=== PATIENT | female | born 1955 | race Caucasian/White ===

== ENCOUNTER → 2017-09-21 | Outpatient (CLI) | payer BC ==
[~2017-09-21] MED LIST: ASPI325 PO; ASPI81EC; ATORVASTATIN CA40 MG PO; BENZ100A PO; BUPR100; BUPR100ER PO; CETI5 PO; CIPR500 PO; CODBUTACEC PO; DIPH25 PO; DIVA125EC; DIVA500EC; DIVA500EC PO; Diflucan100 MG PO; EPIN.3I IM; ESTR.625; ESTR.625 PO; FAMO20 PO; FENO160 PO; FLUC200 PO; FLUO10; FURO20 PO; FURO40; Glipizide ER5 MG PO; HYDACE5 PO; HYDHCL25 PO; INSU100I6; INSULANPEN; LEVSOD100; LEVSOD112 PO; LISHYD2025 PO; LORA10ER PO; METO50ER PO; Metformin HCl500 M1 PO; NEFA100 PO; PRED20 PO; TANZEUM50 MG/0.5 SQ; VENL25 PO; ZYRTEC10 M1 PO; [UNRECOGNIZED DRUG - REMARK]; [UNRECOGNIZED DRUG - REMARK]
[2017-09-21 17:48] LABS: Albumin, Blood 3.4 g/dL (3.4-5.0); Albumin/Globulin Ratio 0.8 (0.8-1.8); Bilirubin, Total 0.4 mg/dL (0.1-1.0); Bun/Creatinine Ratio 30.1 (12.0-20.0); Calcium, Blood 8.9 mg/dL (8.5-10.1); Globulin, Blood 4.5 g/dL (2.2-4.0); Potassium, Blood 4.7 mmol/L (3.5-5.5); Total Protein, Blood 7.9 g/dL (6.4-8.2)
[2017-09-21 17:54] LABS: BASOPHILS PERCENT AUTO 1 % (0-2); EOSINOPHILS ABSOLUTE AUTO 0.57 K/mm3 (0.00-0.68); EOSINOPHILS PERCENT AUTO 6 % (0-6); Hematocrit 27.2 % (33.0-51.0); Hemoglobin 8.2 g/dL (11.5-16.0); IMMATURE GRAN ABSOLUTE AUTO 0.02 K/mm3 (0.00-0.10); IMMATURE GRAN PERCENT AUTO 0 % (0-1); LYMPHOCYTES ABSOLUTE AUTO 2.43 K/mm3 (0.84-5.20); LYMPHOCYTES PERCENT AUTO 25 % (21-46); MONOCYTES ABSOLUTE AUTO 0.88 K/mm3 (0.16-1.47); MONOCYTES PERCENT AUTO 9 % (4-13); Mean Corpuscular HGB 22.7 pg (26.0-34.0); Mean Corpuscular HGB Conc 30.1 g/dL (31.5-36.5); Mean Corpuscular Volume 75 fL (80-100); Mean Platelet Volume 9.9 fL (9.1-12.4); NEUTROPHILS ABSOLUTE AUTO 5.83 K/mm3 (1.96-9.15); NEUTROPHILS PERCENT AUTO 59 % (41-73); Platelet Count 252 K/mm3 (150-400); RDW Coefficient Variation 17.4 % (11.7-14.2); RDW Standard Deviation 47.7 fL (35.1-46.3); Red Blood Cell Count 3.61 M/mm3 (3.80-5.20); White Blood Cell Count 9.83 K/mm3 (4.00-11.30)
[2017-09-21 20:19] LABS: Percent Saturation 8.7 % (15.0-50.0)
== END ==
LOC: LAB SHORT 16:43 → LAB 16:43
PROVIDERS: Family Medicine
DX: L29.9 Pruritus, unspecified (principal); L30.9 Dermatitis, unspecified
CPT/HCPCS: 80053; 82728; 83540; 83550; 85025; 85651

== ENCOUNTER 2017-09-23 10:50 | Emergency (ER) | payer BC ==
[~2017-09-23] VITALS: Ht 167.6 cm; Wt 113.4 kg
[~2017-09-23 10:50] MED LIST changes: -HYDHCL25 PO; -ZYRTEC10 M1 PO
[2017-09-23 11:52] LABS: BASOPHILS ABSOLUTE AUTO 0.09 K/mm3 (0.00-0.23); BASOPHILS PERCENT AUTO 1 % (0-2); EOSINOPHILS ABSOLUTE AUTO 0.35 K/mm3 (0.00-0.68); EOSINOPHILS PERCENT AUTO 4 % (0-6); IMMATURE GRAN ABSOLUTE AUTO 0.03 K/mm3 (0.00-0.10); IMMATURE GRAN PERCENT AUTO 0 % (0-1); LYMPHOCYTES ABSOLUTE AUTO 1.71 K/mm3 (0.84-5.20); LYMPHOCYTES PERCENT AUTO 17 % (21-46); MONOCYTES ABSOLUTE AUTO 0.69 K/mm3 (0.16-1.47); MONOCYTES PERCENT AUTO 7 % (4-13); Mean Corpuscular HGB 23.1 pg (26.0-34.0); Mean Corpuscular HGB Conc 30.8 g/dL (31.5-36.5); Mean Corpuscular Volume 75 fL (80-100); Mean Platelet Volume 9.8 fL (9.1-12.4); NEUTROPHILS PERCENT AUTO 71 % (41-73); Platelet Count 230 K/mm3 (150-400); RDW Coefficient Variation 17.4 % (11.7-14.2); RDW Standard Deviation 46.5 fL (35.1-46.3); Red Blood Cell Count 3.47 M/mm3 (3.80-5.20); White Blood Cell Count 10.07 K/mm3 (4.00-11.30)
[2017-09-23 12:34] LABS: Alanine Aminotransfer (ALT/SGP 25 U/L (12-78); Albumin/Globulin Ratio 0.7 (0.8-1.8); Alk Phos 98 U/L (50-136); Anion Gap 11 mmol/L (6-16); Aspartate Aminotrans (AST/SGOT 27 U/L (12-37); Bilirubin, Total 0.5 mg/dL (0.1-1.0); Blood Urea Nitrogen 21 mg/dL (8-24); Bun/Creatinine Ratio 23.3 (12.0-20.0); CO2, Blood 18 mmol/L (21-32); Calcium, Blood 8.8 mg/dL (8.5-10.1); Chloride, Blood 106 mmol/L (98-108); Globulin, Blood 4.5 g/dL (2.2-4.0); Glomerular Filtration Rate >60 (60-); Glucose, Blood 174 mg/dL (70-99); Potassium, Blood 4.9 mmol/L (3.5-5.5); Sodium, Blood 135 mmol/L (136-145); Total Protein, Blood 7.5 g/dL (6.4-8.2); Troponin I <0.015 ng/mL (0.000-0.040)
[2017-09-23] MEDS ORDERED: HYDHCL25 PO (15:20)
[2017-09-23] MEDS ORDERED: ZYRTEC10 M1 PO (15:20)
== END 2017-09-23 15:35 | disposition home or self-care (01) ==
LOC: ER 10:50
PROVIDERS: Emergency Medicine
DX: L29.9 Pruritus, unspecified (principal); K14.0 Glossitis; D50.9 Iron deficiency anemia, unspecified; L98.9 Disorder of the skin and subcutaneous tissue, unspecified; E11.9 Type 2 diabetes mellitus without complications; F31.9 Bipolar disorder, unspecified; Z79.82 Long term (current) use of aspirin; Z79.899 Other long term (current) drug therapy; Z79.4 Long term (current) use of insulin
CPT/HCPCS: 36415; 71046; 80053; 83880; 84484; 85025; 93005; 93010; 99283

== ENCOUNTER 2017-09-24 16:47 | Emergency (ER) | payer BC ==
[~2017-09-24] VITALS: Ht 167.6 cm; Wt 112.9 kg
[~2017-09-24 16:47] MED LIST changes: +HYDHCL25 PO; +ZYRTEC10 M1 PO
== END 2017-09-24 17:56 | disposition home or self-care (01) ==
LOC: ER 16:47
DX: E11.649 Type 2 diabetes mellitus with hypoglycemia without coma (principal); F31.9 Bipolar disorder, unspecified; G20 Parkinson's disease
CPT/HCPCS: 82947; 93005; 93010; 99283

== ENCOUNTER → 2017-11-03 | Outpatient (CLI) | payer BC ==
[2017-11-03 17:22] LABS: Percent Saturation 5.4 % (15.0-50.0)
== END ==
LOC: LAB SHORT 16:31
PROVIDERS: Internal Medicine Hematology & Oncology
DX: R29.898 Other symptoms and signs involving the musculoskeletal system (principal); G60.9 Hereditary and idiopathic neuropathy, unspecified
CPT/HCPCS: 82607; 82728; 82746; 83540; 83550

== ENCOUNTER → 2017-12-24 | Outpatient (CLI) | payer BC ==
[~2017-12-24] MED LIST changes: +CARV3.125; +Hair, Skin & N1 EACH; +Humalog100 UNIT/1; +LOSA25; +MELATONIN 10 M1 EACH; +Seroquel Xr400 MG; +TYLECOD3
[2017-12-25 13:47] LABS: Stool Occult Bld Immuno 1 Negative (NEGATIVE); Stool Occult Bld Immuno 2 Negative (NEGATIVE)
== END | disposition home or self-care (01) ==
LOC: LAB SHORT 21:35 → LAB 21:35 → LAB FUT 12-02 10:50
PROVIDERS: Internal Medicine Gastroenterology
DX: D50.9 Iron deficiency anemia, unspecified (principal)
CPT/HCPCS: 82274

== ENCOUNTER → 2018-06-03 | Outpatient (CLI) | payer BC ==
[2018-06-03 16:40] LABS: Alanine Aminotransfer (ALT/SGP 36 U/L (12-78); Albumin, Blood 3.3 g/dL (3.4-5.0); Albumin/Globulin Ratio 0.8 (0.8-1.8); Alk Phos 181 U/L (50-136); Anion Gap 9 mmol/L (6-16); Aspartate Aminotrans (AST/SGOT 34 U/L (12-37); Bilirubin, Total 0.4 mg/dL (0.1-1.0); Blood Urea Nitrogen 17 mg/dL (8-24); Bun/Creatinine Ratio 22.4 (12.0-20.0); CO2, Blood 25 mmol/L (21-32); Calcium, Blood 8.7 mg/dL (8.5-10.1); Chloride, Blood 102 mmol/L (98-108); Creatinine, Blood 0.76 mg/dL (0.40-1.00); Globulin, Blood 4.2 g/dL (2.2-4.0); Glomerular Filtration Rate >60 (60-); Glucose, Blood 306 mg/dL (70-99); Potassium, Blood 4.2 mmol/L (3.5-5.5); Sodium, Blood 136 mmol/L (136-145); Total Protein, Blood 7.5 g/dL (6.4-8.2)
[2018-06-03 16:59] LABS: Percent Saturation 19.9 % (15.0-50.0)
== END | disposition home or self-care (01) ==
LOC: LAB SHORT 15:12 → LAB 15:12
PROVIDERS: Internal Medicine Hematology & Oncology
DX: D50.0 Iron deficiency anemia secondary to blood loss (chronic) (principal)
CPT/HCPCS: 80053; 82728; 83540; 83550

== ENCOUNTER → 2018-09-29 | Outpatient (CLI) | payer BC ==
[2018-09-29 17:23] LABS: Percent Saturation 13.6 % (15.0-50.0)
== END | disposition home or self-care (01) ==
LOC: LAB 16:35 → LAB SHORT 16:35
PROVIDERS: Internal Medicine Hematology & Oncology
DX: D51.8 Other vitamin B12 deficiency anemias (principal); D50.0 Iron deficiency anemia secondary to blood loss (chronic); R29.898 Other symptoms and signs involving the musculoskeletal system
CPT/HCPCS: 82607; 82728; 82746; 83540; 83550

== ENCOUNTER → 2019-03-11 | Outpatient (CLI) | payer OTHER | LOC: LAB SHORT 07:40 → PLD 07:40 | DX: L03.115 Cellulitis of right lower limb (principal) | CPT/HCPCS: 88305 ==

== ENCOUNTER → 2019-10-15 | Outpatient (CLI) | payer OTHER ==
[2019-10-15 09:12] LABS: Bilirubin, Urine Neg (Neg); Blood, Urine Neg (Neg); Glucose Qualitative, Urine 4+ (Neg); Ketones, Urine Neg (Neg); Leukocyte Esterase, Urine Neg (Neg); Nitrite, Urine Neg (Neg); Protein, Urine 1+ (Neg); Specific Gravity, Urine 1.025 (1.003-1.022); Urobilinogen, Urine NORM (Normal)
[2019-10-15 09:44] LABS: Appearance, Urine Hazy (Clear); Color, Urine Yellow (P-Yellow)
[2019-10-15 09:45] LABS: Bacteria Few /hpf; Calcium Oxalate Crystals Few /hpf; Red Blood Cells, Urine 0-2 /hpf (0-2); Squamous Epithelial Cells Mod /hpf (Few)
== END | disposition home or self-care (01) ==
LOC: LAB SHORT 08:28 → LAB 08:28
PROVIDERS: Family Medicine
DX: E11.65 Type 2 diabetes mellitus with hyperglycemia (principal); N19 Unspecified kidney failure; D50.0 Iron deficiency anemia secondary to blood loss (chronic); I10 Essential (primary) hypertension
CPT/HCPCS: 81001; 87086

== ENCOUNTER → 2019-10-19 | Outpatient (CLI) | payer OTHER ==
[2019-10-19 13:47] LABS: Stool Occult Bld Immuno 1 Negative (NEGATIVE)
== END | disposition home or self-care (01) ==
LOC: LAB SHORT 05:00 → LAB 05:00
PROVIDERS: Family Medicine
DX: Z12.11 Encounter for screening for malignant neoplasm of colon (principal)
CPT/HCPCS: G0328

== ENCOUNTER 2020-05-09 11:57 | Day surgery (SDC) | payer OTHER ==
[~2020-05-09] VITALS: Ht 160 cm; Wt 77.0 kg
[2020-05-09] MEDS ORDERED: CYCL10 (12:34)
[2020-05-09] MEDS ORDERED: Cyproheptadine H4 MG (12:34)
[2020-05-09] MEDS ORDERED: Naltrexone HCl50 MG (12:35)
[2020-05-09] MEDS ORDERED: GABA300 (12:35)
[2020-05-09] MEDS ORDERED: INVOKANA300 MG (12:35)
[2020-05-09] MEDS ORDERED: XYZAL5 MG (12:35)
[2020-05-09] MEDS ORDERED: OZEMPIC0.25 MG/0. (12:36)
--- NOTE | 2020-05-09 12:55 | NUR ---
05/09/[address] NOTIFED OF N ALLERGY, HE SAYS [place] OK.
--- NOTE | 2020-05-09 13:43 | NUR ---
05/09/20 1343 Deny Maurer 1 MG EPI ADDED TO EACH OF THE FIRST 3 BAGS OF LR FOR IRRIGATION.
== END 2020-05-09 15:35 | disposition home or self-care (01) ==
LOC: ORSCSDS 11:57
PROVIDERS: Orthopaedic Surgery
PROC: 0RNK4ZZ Release Left Shoulder Joint, Percutaneous Endoscopic Approach (ICD-10-PCS; principal; 2020-05-09 13:45)
PROC: 0LQ24ZZ Repair Left Shoulder Tendon, Percutaneous Endoscopic Approach (ICD-10-PCS; principal; 2020-05-09 13:45)
PROC: 0LS44ZZ Reposition Left Upper Arm Tendon, Percutaneous Endoscopic Approach (ICD-10-PCS; principal; 2020-05-09 13:45)
PROC: 0RHK44Z Insertion of Internal Fixation Device into Left Shoulder Joint, Percutaneous Endoscopic Approach (ICD-10-PCS; principal; 2020-05-09 13:45)
DX: M75.122 Complete rotator cuff tear or rupture of left shoulder, not specified as traumatic (principal); M75.22 Bicipital tendinitis, left shoulder; M75.42 Impingement syndrome of left shoulder; M19.012 Primary osteoarthritis, left shoulder; I10 Essential (primary) hypertension; E11.9 Type 2 diabetes mellitus without complications; E03.9 Hypothyroidism, unspecified; Z87.891 Personal history of nicotine dependence; F25.9 Schizoaffective disorder, unspecified; Z79.899 Other long term (current) drug therapy
CPT/HCPCS: 82947; C1713; J0171; J0690; J1100; J1885; J2001; J2250; J2405; J2704; J3010; J7120

== ENCOUNTER 2020-05-28 18:16 | Emergency (ER) | payer OTHER ==
[~2020-05-28] VITALS: Ht 160 cm; Wt 74.8 kg
[~2020-05-28 18:16] MED LIST changes: +CYCL10; +Cyproheptadine H4 MG; +GABA300; +INVOKANA300 MG; +Naltrexone HCl50 MG; +OZEMPIC0.25 MG/0.; +XYZAL5 MG
== END 2020-05-28 19:54 | disposition home or self-care (01) ==
LOC: ER 18:16
DX: M54.6 Pain in thoracic spine (principal); E11.9 Type 2 diabetes mellitus without complications; Z79.899 Other long term (current) drug therapy; Z79.4 Long term (current) use of insulin; Z88.0 Allergy status to penicillin; Z91.02 Food additives allergy status; Z88.5 Allergy status to narcotic agent; Z88.8 Allergy status to other drugs, medicaments and biological substances; Z79.82 Long term (current) use of aspirin
CPT/HCPCS: 96372; 99282-25; J1885

== ENCOUNTER → 2020-11-22 | Outpatient (CLI) | payer OTHER ==
[2020-11-22 16:05] LABS: Microalb/Creat Ratio UR, Rand 37.688 mg/g (0.000-30.000); Microalbumin, Random Urine 60.3 mg/L (0.000-20.000)
== END | disposition home or self-care (01) ==
LOC: LAB 13:09 → LAB SHORT 13:09
PROVIDERS: Internal Medicine Endocrinology, Diabetes & Metabolism
DX: R94.4 Abnormal results of kidney function studies (principal)
CPT/HCPCS: 82043; 82570

== ENCOUNTER 2020-11-23 04:02 | Emergency (ER) | payer OTHER ==
[~2020-11-23] VITALS: Ht 162.6 cm; Wt 70.8 kg
[2020-11-23 04:19] LABS: BASOPHILS ABSOLUTE AUTO 0.12 K/mm3 (0.00-0.23); BASOPHILS PERCENT AUTO 1 % (0-2); EOSINOPHILS ABSOLUTE AUTO 0.63 K/mm3 (0.00-0.68); EOSINOPHILS PERCENT AUTO 7 % (0-6); Hematocrit 37.8 % (33.0-51.0); Hemoglobin 12.7 g/dL (11.5-16.0); IMMATURE GRAN ABSOLUTE AUTO 0.02 K/mm3 (0.00-0.10); IMMATURE GRAN PERCENT AUTO 0 % (0-1); LYMPHOCYTES ABSOLUTE AUTO 1.71 K/mm3 (0.84-5.20); LYMPHOCYTES PERCENT AUTO 20 % (21-46); MONOCYTES ABSOLUTE AUTO 0.58 K/mm3 (0.16-1.47); MONOCYTES PERCENT AUTO 7 % (4-13); Mean Corpuscular HGB 30.7 pg (26.0-34.0); Mean Corpuscular HGB Conc 33.6 g/dL (31.5-36.5); Mean Corpuscular Volume 91 fL (80-100); Mean Platelet Volume 10.2 fL (9.1-12.4); NEUTROPHILS ABSOLUTE AUTO 5.51 K/mm3 (1.96-9.15); NEUTROPHILS PERCENT AUTO 64 % (41-73); Platelet Count 155 K/mm3 (150-400); RDW Coefficient Variation 14.1 % (11.7-14.2); RDW Standard Deviation 45.9 fL (35.1-46.3); Red Blood Cell Count 4.14 M/mm3 (3.80-5.20); White Blood Cell Count 8.57 K/mm3 (4.00-11.30)
[2020-11-23 04:54] LABS: Alanine Aminotransfer (ALT/SGP 34 U/L (12-78); Albumin, Blood 3.8 g/dL (3.4-5.0); Alk Phos 94 U/L (50-136); Anion Gap 4 mmol/L (6-16); Aspartate Aminotrans (AST/SGOT 44 U/L (12-37); Bilirubin, Total 0.6 mg/dL (0.1-1.0); Blood Urea Nitrogen 20 mg/dL (8-24); Bun/Creatinine Ratio 19.6 (12.0-20.0); CO2, Blood 28 mmol/L (21-32); Calcium, Blood 9.3 mg/dL (8.5-10.1); Chloride, Blood 105 mmol/L (98-108); Creatinine, Blood 1.02 mg/dL (0.40-1.00); Globulin, Blood 3.8 g/dL (2.2-4.0); Glomerular Filtration Rate 58 (60-); Glucose, Blood 85 mg/dL (70-99); Potassium, Blood 3.9 mmol/L (3.5-5.5); Sodium, Blood 137 mmol/L (136-145); Total Protein, Blood 7.6 g/dL (6.4-8.2); Troponin I <0.015 ng/mL (0.000-0.040)
== END 2020-11-23 07:20 | disposition home or self-care (01) ==
LOC: ER 04:02
PROVIDERS: Student in an Organized Health Care Education/Training Program
DX: R10.13 Epigastric pain (principal); E11.9 Type 2 diabetes mellitus without complications; Z88.2 Allergy status to sulfonamides; Z88.5 Allergy status to narcotic agent; Z88.0 Allergy status to penicillin; Z79.82 Long term (current) use of aspirin; Z79.899 Other long term (current) drug therapy
CPT/HCPCS: 76705; 80053; 83690; 84484; 85025; 93005; 93010; 96374; 96375; 99284-25; A9270; J1790; J2405

== ENCOUNTER → 2021-03-01 | Outpatient (CLI) | payer OTHER | END | disposition home or self-care (01) | LOC: LAB 13:42 → LAB SHORT 13:42 | DX: N39.9 Disorder of urinary system, unspecified (principal) | CPT/HCPCS: 87086 ==

== ENCOUNTER 2021-04-11 08:57 | Day surgery (SDC) | payer OTHER ==
[~2021-04-11] VITALS: Ht 160 cm; Wt 68.3 kg
== END 2021-04-11 11:05 | disposition home or self-care (01) ==
LOC: ORSCSDS 08:57
PROVIDERS: Internal Medicine Gastroenterology
PROC: 0DB48ZX Excision of Esophagogastric Junction, Via Natural or Artificial Opening Endoscopic, Diagnostic (ICD-10-PCS; principal; 2021-04-11 10:15)
DX: K74.60 Unspecified cirrhosis of liver (principal); Z13.810 Encounter for screening for upper gastrointestinal disorder; E11.9 Type 2 diabetes mellitus without complications; Z80.0 Family history of malignant neoplasm of digestive organs; G20 Parkinson's disease; I10 Essential (primary) hypertension; K76.6 Portal hypertension; K31.89 Other diseases of stomach and duodenum; G47.30 Sleep apnea, unspecified; Z79.4 Long term (current) use of insulin; Z79.82 Long term (current) use of aspirin; Z79.899 Other long term (current) drug therapy
CPT/HCPCS: 82947; 88305; 88312; J2001; J2250; J2370; J2704; J3010; J7120

== ENCOUNTER 2021-12-21 17:00 | Inpatient (IN) | payer OTHER, MEDICARE ==
[~2021-12-21] VITALS: Ht 160 cm; Wt 72.0 kg
[2021-12-21 17:31] LABS: BASOPHILS ABSOLUTE AUTO 0.05 K/mm3 (0.00-0.23); BASOPHILS PERCENT AUTO 1 % (0-2); EOSINOPHILS ABSOLUTE AUTO 0.27 K/mm3 (0.00-0.68); EOSINOPHILS PERCENT AUTO 5 % (0-6); Hematocrit 36.6 % (33.0-51.0); Hemoglobin 11.8 g/dL (11.5-16.0); IMMATURE GRAN ABSOLUTE AUTO 0.02 K/mm3 (0.00-0.10); IMMATURE GRAN PERCENT AUTO 0 % (0-1); LYMPHOCYTES ABSOLUTE AUTO 0.49 K/mm3 (0.84-5.20); LYMPHOCYTES PERCENT AUTO 8 % (21-46); MONOCYTES ABSOLUTE AUTO 0.38 K/mm3 (0.16-1.47); MONOCYTES PERCENT AUTO 6 % (4-13); Mean Corpuscular HGB 29.7 pg (26.0-34.0); Mean Corpuscular HGB Conc 32.2 g/dL (31.5-36.5); Mean Corpuscular Volume 92 fL (80-100); Mean Platelet Volume 9.9 fL (9.1-12.4); NEUTROPHILS ABSOLUTE AUTO 4.71 K/mm3 (1.96-9.15); NEUTROPHILS PERCENT AUTO 80 % (41-73); Platelet Count 107 K/mm3 (150-400); RDW Coefficient Variation 13.5 % (11.7-14.2); RDW Standard Deviation 45.9 fL (35.1-46.3); Red Blood Cell Count 3.97 M/mm3 (3.80-5.20); White Blood Cell Count 5.92 K/mm3 (4.00-11.30)
[2021-12-21 17:41] LABS: Albumin, Blood 3.7 g/dL (3.4-5.0); Bilirubin, Total 0.8 mg/dL (0.1-1.0); Bun/Creatinine Ratio 21.9 (12.0-20.0); Calcium, Blood 9.6 mg/dL (8.5-10.1); Creatinine, Blood 1.05 mg/dL (0.40-1.00); Globulin, Blood 3.7 g/dL (2.2-4.0); Potassium, Blood 3.9 mmol/L (3.5-5.5); Total Protein, Blood 7.4 g/dL (6.4-8.2)
[2021-12-21 20:09] LABS: Source, Urine Clean Catch
[2021-12-21 20:22] LABS: Bilirubin, Urine Neg (Neg); Blood, Urine Neg (Neg); Glucose Qualitative, Urine 4+ (Neg); Ketones, Urine 1+ (Neg); Leukocyte Esterase, Urine Neg (Neg); Nitrite, Urine Neg (Neg); Protein, Urine Neg (Neg); Specific Gravity, Urine 1.015 (1.003-1.022); Urobilinogen, Urine NORM (Normal)
[2021-12-21 20:25] LABS: Appearance, Urine Clear (Clear); Color, Urine Yellow (P-Yellow)
[2021-12-21 20:52] LABS: U Amphetamine Screen Not Detected; U Barbituate Screen Not Detected; U Benzodiazapine Screen Not Detected; U Buprenorphine Screen Not Detected; U Cannabinoids Screen Not Detected; U Cocaine Screen Not Detected; U Methadone Screen Not Detected; U Methamphetamine Screen Not Detected; U Opiates Screen DETECTED; U Oxycodone Screen Not Detected; U Phencyclidine Screen Not Detected; U Propoxyphene Screen Not Detected
--- NOTE | 2021-12-21 23:28 | NUR ---
ASSUMED CARE OF PT AT 2240HRS. PT ARRIVES TO THE FLOOR FROM THE ED VIA TRANSPORT STRETCHER. PT AMBULATES TO BED WITH MIN ASSISTANCE. NEW IV WAS NEEDED, PT TOLERATED PROCEEDURE WELL. BED LOW AND LOCKED, CALL LIGHT WITHIN REACH.
[2021-12-22 04:19] LABS: BASOPHILS ABSOLUTE AUTO 0.03 K/mm3 (0.00-0.23); BASOPHILS PERCENT AUTO 1 % (0-2); EOSINOPHILS ABSOLUTE AUTO 0.26 K/mm3 (0.00-0.68); EOSINOPHILS PERCENT AUTO 5 % (0-6); Hematocrit 32.1 % (33.0-51.0); Hemoglobin 10.6 g/dL (11.5-16.0); IMMATURE GRAN ABSOLUTE AUTO 0.02 K/mm3 (0.00-0.10); IMMATURE GRAN PERCENT AUTO 0 % (0-1); LYMPHOCYTES ABSOLUTE AUTO 0.72 K/mm3 (0.84-5.20); LYMPHOCYTES PERCENT AUTO 15 % (21-46); MONOCYTES ABSOLUTE AUTO 0.46 K/mm3 (0.16-1.47); MONOCYTES PERCENT AUTO 9 % (4-13); Mean Corpuscular HGB 30.3 pg (26.0-34.0); Mean Corpuscular Volume 92 fL (80-100); Mean Platelet Volume 9.5 fL (9.1-12.4); NEUTROPHILS ABSOLUTE AUTO 3.44 K/mm3 (1.96-9.15); NEUTROPHILS PERCENT AUTO 70 % (41-73); Platelet Count 87 K/mm3 (150-400); RDW Coefficient Variation 13.7 % (11.7-14.2); RDW Standard Deviation 46.5 fL (35.1-46.3); White Blood Cell Count 4.93 K/mm3 (4.00-11.30)
--- NOTE | 2021-12-22 04:19 | NUR ---
ASSUMED CARE OF PT AT 2240. PT IS A&OX4, SBA TO BR AND IS ABLE TO MAKE NEEDS KNOWN. ARRIVES TO THE SURGICAL FLOOR FROM THE ED FOR CHOLECYSTITIS, STATES THAT PAIN HAS BEEN HIGH "14/" BUT IS CURRENTLY "7/10" PT IS NPO. PT TO BE EVALUATED TODAY BY SURGERY. RESTS BETWEEN CARES, SLEEPS 6 HOURS THIS SHIFT. WILL CONTINUE TO MONITOR AND GIVE REPORT TO DAY SHIFT RN.
[2021-12-22 04:33] LABS: Bun/Creatinine Ratio 20.4 (12.0-20.0); Calcium, Blood 8.4 mg/dL (8.5-10.1); Creatinine, Blood 1.08 mg/dL (0.40-1.00); Potassium, Blood 3.7 mmol/L (3.5-5.5)
--- NOTE | 2021-12-22 08:22 | NUR ---
SURGICAL INFECTION PREVENTION BUNDLE COMPLETED.
[2021-12-22 12:27] LABS: Influenza A, PCR NEGATIVE (NEGATIVE); Influenza B, PCR NEGATIVE (NEGATIVE); Resp Syncytial Virus, PCR NEGATIVE (NEGATIVE)
[2021-12-22 12:31] LABS: SARS-Cov-2 (COVID-19) PCR, MMC POSITIVE (NEGATIVE)
--- NOTE | 2021-12-22 14:15 | NUR ---
PATIENT TO OR VIA [facility] WITH JUAN JOSÉ KIDD.
--- NOTE | 2021-12-23 05:45 | NUR ---
PT HAS BEEN RESTING COMFORTABLY IN BED WITH EYES CLOSED FOR MOST OF A.M. STATES PAIN IN SHOULDERS HAVE SUBSIDED. MINIMAL AMOUNT OF CREPITUS NOTED ON LEFT SHOULDER AREA LAST EVENING. NO CREPITUS NOTED NOW. PT UP TO BATHROOM TO VOID WITH ASSISTANCE OF NICOLE RDZ.
[2021-12-23] MEDS ORDERED: HYDR1TAB94 PO (10:19)
--- NOTE | 2021-12-23 11:07 | NUR ---
DISCHARGE SUMMARY PATIENT ALERT AND ORIENTED THROUGHOUT SHIFT. SBA IN ROOM. TOLERATING ADA DIET AND LIQUIDS. SALINE LOCKED. VOIDING WELL. ABD LAP SITES WNL WITH STERI STRIPS IN PLACE. ABD TENDER AND MOD DISTENDED. DISCHARGE ORDERS OBTAINED. DISCHARGE EDUCATION GIVEN ON PAIN MEDS, ACTIVITY, DIET, WOUND CARE, AND FOLLOW UP APPT. IV DC'D WNL. PATIENT LEFT UNIT AT 1100 VIA WHEELCHAIR WITH SPOUSE FOR HOME.
== END 2021-12-23 11:13 | disposition home or self-care (01) | DRG 417 ==
LOC: ER 17:00 → SURS 20:53
PROVIDERS: Emergency Medicine; Family Medicine; Surgery; ADMIT Internal Medicine
PROC: BF131ZZ Fluoroscopy of Gallbladder and Bile Ducts using Low Osmolar Contrast (ICD-10-PCS; 2021-12-22)
PROC: 8E0ZXY6 Isolation (ICD-10-PCS; 2021-12-22)
PROC: 0FT44ZZ Resection of Gallbladder, Percutaneous Endoscopic Approach (ICD-10-PCS; principal; 2021-12-22 13:30)
DX: K80.12 Calculus of gallbladder with acute and chronic cholecystitis without obstruction (principal); U07.1 COVID-19; N17.9 Acute kidney failure, unspecified; R18.8 Other ascites; M79.7 Fibromyalgia; G20 Parkinson's disease; F02.80 Dementia in other diseases classified elsewhere, unspecified severity, without behavioral disturbance, psychotic disturbance, mood disturbance, and anxiety; F31.9 Bipolar disorder, unspecified; D69.6 Thrombocytopenia, unspecified; N18.30 Chronic kidney disease, stage 3 unspecified; E11.22 Type 2 diabetes mellitus with diabetic chronic kidney disease; L29.9 Pruritus, unspecified; G89.4 Chronic pain syndrome; E11.40 Type 2 diabetes mellitus with diabetic neuropathy, unspecified; E03.9 Hypothyroidism, unspecified; K74.60 Unspecified cirrhosis of liver; Z90.710 Acquired absence of both cervix and uterus; Z98.890 Other specified postprocedural states; Z88.0 Allergy status to penicillin; Z88.2 Allergy status to sulfonamides; Z88.1 Allergy status to other antibiotic agents; Z88.6 Allergy status to analgesic agent; Z88.8 Allergy status to other drugs, medicaments and biological substances; Z79.4 Long term (current) use of insulin; Z79.82 Long term (current) use of aspirin; Z79.899 Other long term (current) drug therapy
CPT/HCPCS: 0241U; 36415; 74177; 74300; 80048; 80053; 81003; 82947; 83690; 84484; 85025; 88304; 93005; 93010; 96365-59; 96366; 96375; 96376; 99285-25; A9270; C1729; J0692; J1100; J2250; J2270; J2405; J2543; J2704; J3010; J7042; J7120; P9612; Q9967

== ENCOUNTER → 2022-01-31 | Outpatient (CLI) | payer OTHER, MEDICARE ==
[~2022-01-31] MED LIST changes: +HYDR1TAB94 PO
[2022-01-31 18:56] LABS: Creatinine Urine 56.4 mg/dL (27.00-270.00); Microalbumin, Urine Quant. 11.7 mg/L (0.000-20.000); Protein, Urine Quantitative 5.9 mg/dL (0.0-11.9)
== END | disposition home or self-care (01) ==
LOC: LAB 14:33 → LAB SHORT 14:33
PROVIDERS: Internal Medicine Nephrology
DX: N18.2 Chronic kidney disease, stage 2 (mild) (principal); D63.1 Anemia in chronic kidney disease; R76.9 Abnormal immunological finding in serum, unspecified; R94.5 Abnormal results of liver function studies; R94.6 Abnormal results of thyroid function studies
CPT/HCPCS: 81050; 82043; 82570; 84156

== ENCOUNTER → 2023-01-14 | Outpatient (CLI) | payer MEDICARE, OTHER | END | disposition home or self-care (01) | LOC: LAB 11:14 → LAB SHORT 11:14 → LAB FUT 01-11 17:20 → EDSTATUS 01-11 17:20 | DX: R27.0 Ataxia, unspecified (principal) | CPT/HCPCS: 81050 ==

== ENCOUNTER → 2023-03-20 | Outpatient (CLI) | payer MEDICARE, OTHER | END | disposition home or self-care (01) | LOC: LAB SHORT 15:50 → LAB 15:50 | DX: N39.0 Urinary tract infection, site not specified (principal) | CPT/HCPCS: 87077; 87086; 87186 ==

== ENCOUNTER 2023-04-14 16:25 | Inpatient (IN) | payer MEDICARE, OTHER ==
[~2023-04-14] VITALS: Ht 160 cm; Wt 69.8 kg
[~2023-04-14 16:25] MED LIST changes: -BUPR100ER PO; +BUPROPION XL150 M1 PO; -Naltrexone HCl50 MG; +Naltrexone HCl50 MG PO
[2023-04-14] MEDS ORDERED: FUROSEMIDE20 MG PO (17:01)
[2023-04-14] MEDS ORDERED: FINA5 PO (17:01)
[2023-04-14 17:04] LABS: BASOPHILS ABSOLUTE AUTO 0.04 K/mm3 (0.00-0.23); BASOPHILS PERCENT AUTO 0 % (0-2); EOSINOPHILS ABSOLUTE AUTO 0.04 K/mm3 (0.00-0.68); EOSINOPHILS PERCENT AUTO 0 % (0-6); Hematocrit 41.6 % (33.0-51.0); Hemoglobin 12.9 g/dL (11.5-16.0); IMMATURE GRAN ABSOLUTE AUTO 0.07 K/mm3 (0.00-0.10); IMMATURE GRAN PERCENT AUTO 0 % (0-1); LYMPHOCYTES ABSOLUTE AUTO 0.79 K/mm3 (0.84-5.20); LYMPHOCYTES PERCENT AUTO 5 % (21-46); MONOCYTES ABSOLUTE AUTO 0.59 K/mm3 (0.16-1.47); MONOCYTES PERCENT AUTO 3 % (4-13); Mean Corpuscular HGB 26.5 pg (26.0-34.0); Mean Corpuscular Volume 86 fL (80-100); Mean Platelet Volume 9.5 fL (9.1-12.4); NEUTROPHILS ABSOLUTE AUTO 15.94 K/mm3 (1.96-9.15); NEUTROPHILS PERCENT AUTO 91 % (41-73); Platelet Count 266 K/mm3 (150-400); RDW Coefficient Variation 16.1 % (11.7-14.2); RDW Standard Deviation 48.7 fL (35.1-46.3); Red Blood Cell Count 4.86 M/mm3 (3.80-5.20); White Blood Cell Count 17.47 K/mm3 (4.00-11.30)
[2023-04-14 17:31] LABS: Albumin, Blood 3.6 g/dL (3.4-5.0); Albumin/Globulin Ratio 0.8 (0.8-1.8); Bilirubin, Total 0.5 mg/dL (0.1-1.0); Calcium, Blood 10.3 mg/dL (8.5-10.1); Creatinine, Blood 1.71 mg/dL (0.40-1.00); Globulin, Blood 4.4 g/dL (2.2-4.0)
[2023-04-14] MEDS ORDERED: INSULANI SC (21:04)
[2023-04-14] MEDS ORDERED: LISI5 PO (21:06)
[2023-04-14 22:02] VITALS: BP 122/63
[2023-04-14] MEDS ORDERED: GABA300 PO ×4 (22:10→22:12)
[2023-04-15 03:56] VITALS: BP 96/45
--- NOTE | 2023-04-15 04:42 | NUR ---
SHIFT SUMMARY: PT IS ADMITTED FOR INFECTIOUS COLITIS AND IS A FULL CODE. SHE IS ALERT AND ABLE TO MAKE HER NEEDS KNOWN. ADLS HAVE BEEN 1P MOD ASSIST TO BEDSIDE COMMODE. HAS STATED THAT HER ABD IS TENDER BUT DECLINED ANYTHING FOR IT DURING SHIFT. IV TO LEFT AC IS PATENT AND RUNNING NS AT 125.
[2023-04-15 05:06] LABS: Hematocrit 35.4 % (33.0-51.0); Hemoglobin 11.1 g/dL (11.5-16.0); Mean Corpuscular HGB 26.9 pg (26.0-34.0); Mean Corpuscular HGB Conc 31.4 g/dL (31.5-36.5); Mean Corpuscular Volume 86 fL (80-100); Platelet Count 163 K/mm3 (150-400); RDW Coefficient Variation 16.6 % (11.7-14.2); RDW Standard Deviation 49.4 fL (35.1-46.3); Red Blood Cell Count 4.12 M/mm3 (3.80-5.20); White Blood Cell Count 14.26 K/mm3 (4.00-11.30)
[2023-04-15 05:51] LABS: Bun/Creatinine Ratio 20.8 (12.0-20.0); Calcium, Blood 8.4 mg/dL (8.5-10.1); Creatinine, Blood 1.49 mg/dL (0.40-1.00); Magnesium, Blood 2.1 mg/dL (1.6-2.4); Potassium, Blood 4.6 mmol/L (3.5-5.5)
[2023-04-15 06:16] LABS: Source, Urine Clean Catch
[2023-04-15 06:19] LABS: Appearance, Urine Hazy (Clear); Blood, Urine Neg (Neg); Color, Urine Yellow (P-Yellow); Glucose Qualitative, Urine Neg (Neg); Ketones, Urine Neg (Neg); Leukocyte Esterase, Urine 1+ (Neg); Nitrite, Urine Neg (Neg); Protein, Urine 2+ (Neg); Specific Gravity, Urine 1.025 (1.003-1.022); Urobilinogen, Urine NORM (Normal)
--- NOTE | 2023-04-15 06:29 | NUR ---
pt refused thryiod med this am. stated it was wrong dose. handed this nurse 3x5 card with hand written medications and doses. this nurse noted thryiod was written as 5mg. she was asked to have come in with pill bottles from home so medications can be matched.
[2023-04-15 06:46] LABS: Bilirubin, Urine 1+ (Neg)
[2023-04-15 06:47] LABS: Bacteria Few /hpf; Red Blood Cells, Urine Not Seen /hpf (0-2); Squamous Epithelial Cells Rare /hpf (Few)
[2023-04-15 07:15] VITALS: BP 123/50
--- NOTE | 2023-04-15 14:32 | NUR ---
Upon receiving a referral for spiritual care, I visited the patient. She talks at length about her family, her history and her recent surgeries and now this admission to the hospital. She shares about her Religion paul and her longing for the original mass format. She talks about her spouse's prosthetic eye surgery and it success and how she wishes to be out of the hosptial by morning so [place] I conduct a life review highlighting the patient's strengths, and provide therapeutic listening and prayer. Patient responded well and showed signs of an elevated mood. I will continue to remain available to patient and family.
[2023-04-15 15:18] VITALS: BP 106/47
--- NOTE | 2023-04-15 15:53 | NUR ---
NOTIFIED DR RONQUILLO OF PATIENT'S SOFT BP 106/47 AND TEMP OF 99.8. REPORTED PATIENT'S COMPLAINT OF ABDOMINAL CRAMPING FROM THE UMBILICUS UPWARD. HE VERBALIZED THAT HE WILL PUT IN SOME ORDERS.
--- NOTE | 2023-04-15 19:13 | NUR ---
SHIFT SUMMARY A&OX3-4, COOPERATIVE WITH CARE. DENIED CP/PRESSURE, HEADACHE, DIZZINESS, OR SOB. COMPLAINED OF 8/10 PAIN TO CRAMPING/ACHING ABDOMEN THAT RADIATES UP TO SHOULDERS. MEDICATED ONCE AT 1040 PER EMAR. EKG SHOWED NSR. PATIENT HAD A BLOODY/MUCOUSY STOOL AND SAMPLE WAS SENT FOR GI PANEL/CDIFF R[place] [facility] [place] RESTING IN BED WITH CALL LIGHT IN REACH.
[2023-04-15 20:13] VITALS: BP 118/52
[2023-04-15 20:20] LABS: Adenovirus F 40/41 Not Detected (NOT DETECT); Astrovirus Not Detected (NOT DETECT); Campylobacter Sp Not Detected (NOT DETECT); Cryptosporidium Not Detected (NOT DETECT); Cyclospora Cayetanensis Not Detected (NOT DETECT); E. Coli O157 Not Detected (NOT DETECT); Entamoeba Histolytica Not Detected (NOT DETECT); Enteroaggregative E. coli-EAEC Not Detected (NOT DETECT); Enteropathogenic E. coli-EPEC Not Detected (NOT DETECT); Enterotoxigenic E. coli-ETEC Not Detected (NOT DETECT); Giardia Lamblia Not Detected (NOT DETECT); Norovirus GI/GII Not Detected (NOT DETECT); Plesiomonas Shigelloides Not Detected (NOT DETECT); Rotavirus A Not Detected (NOT DETECT); Salmonella Sp Not Detected (NOT DETECT); Sapovirus Not Detected (NOT DETECT); Shiga Toxin-prod E. coli-STEC Not Detected (NOT DETECT); Shigella/Enteroin E. coli-EIEC Not Detected (NOT DETECT); Vibrio Cholerae Not Detected (NOT DETECT); Vibrio Sp Not Detected (NOT DETECT); Yersinia Enterocolitica Not Detected (NOT DETECT)
--- NOTE | 2023-04-15 21:00 | NUR ---
GI PANEL RESULT SHOWED (+) C.DIFF W/TOX A&B RESULTS PENDING. NAEL (GLUER MACHINE OPERATOR) MADE AND AWARE AND PT PLACED IN CONTACT ISO W/PO VANCO COMMENCED. 1ST DOSE RECIEVED.
[2023-04-16 02:45] VITALS: BP 118/52
--- NOTE | 2023-04-16 05:22 | NUR ---
SUMMARY: PT A/OX4, IS PLEASANT AND COOPERATIVE W/CARE AND CALLS APPROPRIATELY TO SPECIFY NEEDS. SHE'S 1-2PA TO BSC FOR WEAKNESS AND PARKINSONIAN TREMOR INTERMITTENTLY OBSERVED. PT WAS PLACED IN CONTACT ISO FOR (+) C.DIFF WHILE TOX A&B RESULT IS PENDING. ORAL VANCO COMMENCED W/1ST DOSE RECIEVED. IV ABX PROVIDED FOR COLITIS BUT PT REPORTS ABDO DISCOMFORT IS MUCH BETTER TONIGHT. SHE HASN'T REQUIRED ANY PRN NAUSEA OR PAIN MEDS THIS SHIFT AND DISTENSION SEEMS TO BE IMPROVING. SHE WAS UP TO BSC FOR X3 STOOLS THAT WERE MAROON COLORED W/MELENA ODOR AND LIQ/MUCOUS CONSISTENCY. MADE AWARE AND GUAIAC X1 RX'D, PLAN TO OBTAIN W/NEXT BM. NO ACUTE CHANGES, VSS/AFEBRILE. WCTM AND REPORT TO DAY RN.
[2023-04-16 06:35] LABS: Albumin, Blood 2.3 g/dL (3.4-5.0); Anion Gap 5 mmol/L (6-16); Blood Urea Nitrogen 41 mg/dL (8-24); Bun/Creatinine Ratio 21.9 (12.0-20.0); CO2, Blood 22 mmol/L (21-32); Calcium, Blood 7.8 mg/dL (8.5-10.1); Chloride, Blood 111 mmol/L (98-108); Creatinine, Blood 1.87 mg/dL (0.40-1.00); Glomerular Filtration Rate 29 (60-); Glucose, Blood 146 mg/dL (70-99); Phosphorus, Blood 2.7 mg/dL (2.5-4.9); Potassium, Blood 4.8 mmol/L (3.5-5.5); Sodium, Blood 138 mmol/L (136-145)
[2023-04-16 07:10] LABS: BASOPHILS ABSOLUTE AUTO 0.03 K/mm3 (0.00-0.23); BASOPHILS PERCENT AUTO 0 % (0-2); EOSINOPHILS ABSOLUTE AUTO 0.05 K/mm3 (0.00-0.68); EOSINOPHILS PERCENT AUTO 0 % (0-6); Hematocrit 33.2 % (33.0-51.0); Hemoglobin 10.3 g/dL (11.5-16.0); IMMATURE GRAN ABSOLUTE AUTO 0.27 K/mm3 (0.00-0.10); IMMATURE GRAN PERCENT AUTO 2 % (0-1); LYMPHOCYTES ABSOLUTE AUTO 1.01 K/mm3 (0.84-5.20); LYMPHOCYTES PERCENT AUTO 7 % (21-46); MONOCYTES ABSOLUTE AUTO 1.02 K/mm3 (0.16-1.47); MONOCYTES PERCENT AUTO 7 % (4-13); Mean Corpuscular HGB 26.4 pg (26.0-34.0); Mean Corpuscular Volume 85 fL (80-100); Mean Platelet Volume 10.5 fL (9.1-12.4); NEUTROPHILS ABSOLUTE AUTO 12.27 K/mm3 (1.96-9.15); NEUTROPHILS PERCENT AUTO 84 % (41-73); Platelet Count 142 K/mm3 (150-400); RDW Coefficient Variation 16.8 % (11.7-14.2); RDW Standard Deviation 51.8 fL (35.1-46.3); White Blood Cell Count 14.65 K/mm3 (4.00-11.30)
[2023-04-16 15:35] LABS: Stool Occult Blood Guaiac 1 Pos (Neg)
[2023-04-16 15:56] VITALS: BP 97/42
--- NOTE | 2023-04-16 17:14 | NUR ---
PATIENT A/OX4, UP WITH 1-2 ASSIST WITH FWW. PATIENT HAVING SMALL LIQUID MAROON COLORED STOOL, GUAIAC SENT AND CAME BACK POSITIVE. SPOKE WITH DR. RONQUILLO TODAY ABOUT PATIENTS STOOL AND ALSO THAT SHE IS VOIDING VERY LITTLE. LR RESTARTED AT 100 ML/HR. PATIENT ADVANCED TO SOFT DIET, AND PO INTAKE REMAINS POOR. VSS, ON 1LO2 TO MAINTAIN SATS >90%. PATIENT ABLE TO MAKE NEEDS KNOWN AND IS PLEASANT AND COOPERATIVE WITH CARE.
[2023-04-16 20:16] VITALS: BP 114/49
[2023-04-17 03:36] VITALS: BP 121/54
[2023-04-17 05:26] LABS: BASOPHILS ABSOLUTE AUTO 0.04 K/mm3 (0.00-0.23); BASOPHILS PERCENT AUTO 0 % (0-2); EOSINOPHILS ABSOLUTE AUTO 0.23 K/mm3 (0.00-0.68); EOSINOPHILS PERCENT AUTO 2 % (0-6); Hematocrit 32.1 % (33.0-51.0); Hemoglobin 9.9 g/dL (11.5-16.0); IMMATURE GRAN ABSOLUTE AUTO 0.56 K/mm3 (0.00-0.10); IMMATURE GRAN PERCENT AUTO 6 % (0-1); LYMPHOCYTES PERCENT AUTO 7 % (21-46); MONOCYTES PERCENT AUTO 7 % (4-13); Mean Corpuscular HGB 26.5 pg (26.0-34.0); Mean Corpuscular HGB Conc 30.8 g/dL (31.5-36.5); Mean Corpuscular Volume 86 fL (80-100); Mean Platelet Volume 9.7 fL (9.1-12.4); NEUTROPHILS ABSOLUTE AUTO 7.85 K/mm3 (1.96-9.15); NEUTROPHILS PERCENT AUTO 78 % (41-73); Platelet Count 121 K/mm3 (150-400); RDW Coefficient Variation 16.7 % (11.7-14.2); RDW Standard Deviation 51.8 fL (35.1-46.3); Red Blood Cell Count 3.73 M/mm3 (3.80-5.20); White Blood Cell Count 10.08 K/mm3 (4.00-11.30)
--- NOTE | 2023-04-17 05:42 | NUR ---
SHIFT SUMMARY PT SITTING UP IN BED DURING BEDSIE ROUNDS- PT AT BEDSIDE- PT UP TO BSC COUPLE TIMES T/O NIGHT- PT HAD MAROON COLORED STOOL EACH TIME- PT C/O PAIN FROM LEFT IV- STOPPED CIPRO- REDNESS AROUND THE IV SITE- REMOVED IV WITH CANULA INTACT-APPLIED COMPRESSION - REDNESS RESOVED- NEW IV STARTED IN RIGHT ARM- PT REQUESTED PAIN MED X 2 IN THE NIGHT- PT REPORTED ALL OVER PAIN -ENCOURAGED PT TO INCREASE FLUID INTAKE- BED LOW POSITION, CALL LIGHT WITHIN REACH
[2023-04-17 05:50] LABS: Albumin, Blood 2.1 g/dL (3.4-5.0); Anion Gap 7 mmol/L (6-16); Blood Urea Nitrogen 44 mg/dL (8-24); CO2, Blood 22 mmol/L (21-32); Calcium, Blood 7.8 mg/dL (8.5-10.1); Chloride, Blood 107 mmol/L (98-108); Creatinine, Blood 1.57 mg/dL (0.40-1.00); Glomerular Filtration Rate 36 (60-); Glucose, Blood 113 mg/dL (70-99); Phosphorus, Blood 2.3 mg/dL (2.5-4.9); Potassium, Blood 4.3 mmol/L (3.5-5.5); Sodium, Blood 136 mmol/L (136-145)
[2023-04-17 05:56] LABS: BAND PERCENT MAN 3 % (0-8); BASOPHILS PERCENT MAN 1 % (0-2); EOSINOPHILS PERCENT MAN 3 % (0-6); LYMPHOCYTES PERCENT MAN 6 % (21-46); METAMYELOCYTE PERCENT MAN 1 % (0-0); MONOCYTES PERCENT MAN 6 % (4-13); NEUTROPHILS ABSOLUTE MAN 8.36 K/mm3 (1.96-9.15); SEG NEUTROPHILS PERCENT MAN 80 % (41-73); TOTAL CELLS COUNTED 100
[2023-04-17 07:22] VITALS: BP 104/42
[2023-04-17 17:16] VITALS: BP 131/57
--- NOTE | 2023-04-17 17:20 | NUR ---
SHIFT SUMMARY PT AOX4, 1 ASSIST WITH THE FWW TO THE BSC. BLOODY STOOL THIS AM, PROVIDER IS AWARE AND MONITORING H AND H. MEDICATED FOR PAIN PER THE EMAR. PAIN SEEMS TO BE UNDER CONTROL USING THE MEDICATIONS AVAILABLE. HEATING PAD HAS ALSO HELPED WITH HER ABD PAIN. FAMILY HAS BEEN AT THE BS THROUGHOUT THE SHIFT. CALL LIGHT WITHIN REACH, BED IN THE LOWEST POSITION. WILL REPORT TO ONCOMING NURSE.
[2023-04-17 20:11] VITALS: BP 130/55
[2023-04-18 04:36] VITALS: BP 126/56
--- NOTE | 2023-04-18 04:45 | NUR ---
SHIFT SUMMARY PATIENT IS ALERT AND ORIENTED, IN THIS EVENING TO VISIT. PATIENT C/O STOMACH BLOATING AND FEELING LIKE SHE NEEDS TO HAVE A BOWEL MOVEMENT AND ALSO REPORTS THAT HER APPETITE HAS NOT BEEN VERY GOOD AND SHE HAS NOT BEEN EATING A WHOLE LOT. PATIENT C/O PAIN IN THE ABDOMEN-MEDICATED PER EMAR X1. PATIENT CALLS APPROPRIATELY AND IS ABLE TO MAKE HER NEEDS KNOWN. ENCOURGAED PATIENT TO DRINK ORAL FLUIDS. BED IS LOCKED IN THE LOWEST POSITION WITH CALL LIGHT IN REACH. NO S/S OF DISTRESS NOTED AT THIS TIME.
[2023-04-18 04:51] LABS: Hematocrit 30.9 % (33.0-51.0); Hemoglobin 9.7 g/dL (11.5-16.0); Mean Corpuscular HGB 26.4 pg (26.0-34.0); Mean Corpuscular HGB Conc 31.4 g/dL (31.5-36.5); Mean Corpuscular Volume 84 fL (80-100); Mean Platelet Volume 9.9 fL (9.1-12.4); Platelet Count 125 K/mm3 (150-400); RDW Coefficient Variation 16.3 % (11.7-14.2); RDW Standard Deviation 49.7 fL (35.1-46.3); Red Blood Cell Count 3.67 M/mm3 (3.80-5.20); White Blood Cell Count 7.57 K/mm3 (4.00-11.30)
[2023-04-18 05:28] LABS: Anion Gap 6 mmol/L (6-16); Blood Urea Nitrogen 33 mg/dL (8-24); Bun/Creatinine Ratio 26.8 (12.0-20.0); CO2, Blood 22 mmol/L (21-32); Calcium, Blood 7.9 mg/dL (8.5-10.1); Chloride, Blood 110 mmol/L (98-108); Creatinine, Blood 1.23 mg/dL (0.40-1.00); Ferritin, Serum 628 ng/mL (8-252); Glomerular Filtration Rate 48 (60-); Glucose, Blood 115 mg/dL (70-99); Iron Serum 16 ug/dL (50-170); Percent Saturation 8.3 % (15.0-50.0); Phosphorus, Blood 1.6 mg/dL (2.5-4.9); Potassium, Blood 4.2 mmol/L (3.5-5.5); Sodium, Blood 138 mmol/L (136-145); Total Iron Binding Capacity 193 ug/dL (250-450)
[2023-04-18 07:37] VITALS: BP 92/39
[2023-04-18 15:24] VITALS: BP 106/55
[2023-04-18] MEDS ORDERED: CARV3.125 PO (15:30)
[2023-04-18] MEDS ORDERED: FLAGYL500 M1 PO (15:31)
[2023-04-18] MEDS ORDERED: EUTHYROX50 MCG PO (15:32)
[2023-04-18] MEDS ORDERED: CIPR500 PO (15:32)
[2023-04-18] MEDS ORDERED: HYOS.125 SL (15:33)
[2023-04-18] MEDS ORDERED: NAC600 MG PO (16:16)
[2023-04-18] MEDS ORDERED: CALCIUM-MAGNES1 EAC9 PO (16:18)
[2023-04-18] MEDS ORDERED: ASPI325EC PO (16:18)
--- NOTE | 2023-04-18 18:13 | NUR ---
DC HOME WRITTEN & VERBAL DC INSTRUCTIONS GIVEN TO PT WITH SPOUSE PRESENT, BOTH VERBALIZED GOOD UNDERSTANDING. ALL CONCERNS & QUESTIONS ADDRESSED. PIV DC'D WITH CATH TIP INTACT, NO REDNESS OR SWELLING NOTED. NEW MED SCRIPTS FA[facility]ED TO [facility] PER PT REQUEST. PT TO PV VIA W/C WITH ALL PERSONAL BELONGINGS.
== END 2023-04-18 18:19 | disposition home or self-care (01) | DRG 872 ==
LOC: ER 16:25 → MEDS 21:01 → ENPENDDIS 04-18 16:48 → MEDS 04-18 18:19
PROVIDERS: Internal Medicine; Nurse Practitioner Acute Care; Physician Assistant; Student in an Organized Health Care Education/Training Program; ADMIT Internal Medicine
PROC: 3E03329 Introduction of Other Anti-infective into Peripheral Vein, Percutaneous Approach (ICD-10-PCS; principal; 2023-04-14)
PROC: 3E0DX29 Introduction of Other Anti-infective into Mouth and Pharynx, External Approach (ICD-10-PCS; 2023-04-15)
DX: A41.4 Sepsis due to anaerobes (principal); A04.72 Enterocolitis due to Clostridium difficile, not specified as recurrent; N17.9 Acute kidney failure, unspecified; N18.9 Chronic kidney disease, unspecified; E11.22 Type 2 diabetes mellitus with diabetic chronic kidney disease; F31.9 Bipolar disorder, unspecified; G20.A1 Parkinson's disease without dyskinesia, without mention of fluctuations; M79.7 Fibromyalgia; E86.0 Dehydration; R65.20 Severe sepsis without septic shock; E78.5 Hyperlipidemia, unspecified; I12.9 Hypertensive chronic kidney disease with stage 1 through stage 4 chronic kidney disease, or unspecified chronic kidney disease; E03.9 Hypothyroidism, unspecified; D63.1 Anemia in chronic kidney disease; K74.60 Unspecified cirrhosis of liver; Z88.0 Allergy status to penicillin; Z88.2 Allergy status to sulfonamides; Z88.1 Allergy status to other antibiotic agents; Z88.6 Allergy status to analgesic agent; Z88.8 Allergy status to other drugs, medicaments and biological substances; Z79.4 Long term (current) use of insulin; Z79.890 Hormone replacement therapy
CPT/HCPCS: 36415; 74177; 80048; 80053; 80069; 81001; 82272; 82728; 82947; 83540; 83550; 83605; 83615; 83690; 83735; 84484; 85025; 85027; 87040; 87086; 87324; 87507; 93005; 93010; 96361; 96365; 96372-59; 96375; 99285-25; A9270; J0500; J0744; J1644; J1815; J2405; J3010; J7030; J7120; P9612; Q9967

== ENCOUNTER 2023-04-28 11:20 | Emergency (ER) | payer MEDICARE, OTHER ==
[~2023-04-28] VITALS: Ht 160 cm; Wt 77.6 kg
[~2023-04-28 11:20] MED LIST changes: +ASPI325EC PO; +CALCIUM-MAGNES1 EAC9 PO; +CARV3.125 PO; +EUTHYROX50 MCG PO; +FINA5 PO; +FLAGYL500 M1 PO; +FUROSEMIDE20 MG PO; +GABA300 PO; +HYOS.125 SL; +INSULANI SC; +LISI5 PO; +NAC600 MG PO
[2023-04-28 11:55] LABS: BASOPHILS ABSOLUTE AUTO 0.06 K/mm3 (0.00-0.23); BASOPHILS PERCENT AUTO 1 % (0-2); EOSINOPHILS ABSOLUTE AUTO 0.28 K/mm3 (0.00-0.68); EOSINOPHILS PERCENT AUTO 6 % (0-6); Hematocrit 34.8 % (33.0-51.0); Hemoglobin 10.9 g/dL (11.5-16.0); IMMATURE GRAN ABSOLUTE AUTO 0.04 K/mm3 (0.00-0.10); IMMATURE GRAN PERCENT AUTO 1 % (0-1); LYMPHOCYTES ABSOLUTE AUTO 0.97 K/mm3 (0.84-5.20); LYMPHOCYTES PERCENT AUTO 19 % (21-46); MONOCYTES ABSOLUTE AUTO 0.34 K/mm3 (0.16-1.47); MONOCYTES PERCENT AUTO 7 % (4-13); Mean Corpuscular HGB 26.3 pg (26.0-34.0); Mean Corpuscular HGB Conc 31.3 g/dL (31.5-36.5); Mean Corpuscular Volume 84 fL (80-100); Mean Platelet Volume 9.4 fL (9.1-12.4); NEUTROPHILS ABSOLUTE AUTO 3.44 K/mm3 (1.96-9.15); NEUTROPHILS PERCENT AUTO 67 % (41-73); Platelet Count 164 K/mm3 (150-400); RDW Coefficient Variation 17.2 % (11.7-14.2); Red Blood Cell Count 4.15 M/mm3 (3.80-5.20); White Blood Cell Count 5.13 K/mm3 (4.00-11.30)
[2023-04-28 12:30] LABS: Albumin, Blood 2.8 g/dL (3.4-5.0); Albumin/Globulin Ratio 0.7 (0.8-1.8); Bilirubin, Total 0.5 mg/dL (0.1-1.0); Bun/Creatinine Ratio 13.9 (12.0-20.0); Calcium, Blood 9.3 mg/dL (8.5-10.1); Creatinine, Blood 0.72 mg/dL (0.40-1.00); Globulin, Blood 4.1 g/dL (2.2-4.0); Potassium, Blood 3.8 mmol/L (3.5-5.5); Total Protein, Blood 6.9 g/dL (6.4-8.2)
[2023-04-28] MEDS ORDERED: Cyproheptadine H4 MG (14:34)
[2023-04-28] MEDS ORDERED: ATOR40TA PO (14:35)
[2023-04-28] MEDS ORDERED: BASAGLAR K100 UNIT/3 SC (14:35)
[2023-04-28] MEDS ORDERED: Vancocin HCl125 MG (14:35)
[2023-04-28] MEDS ORDERED: HYDROCODONE-AC1 EA19 PO (14:35)
[2023-04-28 22:56] VITALS: BP 143/69
== END 2023-04-28 22:51 | disposition home or self-care (01) ==
LOC: ER 11:20
PROVIDERS: Physician Assistant
DX: R10.12 Left upper quadrant pain (principal); R18.8 Other ascites; A04.72 Enterocolitis due to Clostridium difficile, not specified as recurrent; E11.9 Type 2 diabetes mellitus without complications; Z91.02 Food additives allergy status; Z88.8 Allergy status to other drugs, medicaments and biological substances; Z88.0 Allergy status to penicillin; Z88.2 Allergy status to sulfonamides; Z88.1 Allergy status to other antibiotic agents; Z88.5 Allergy status to narcotic agent; Z79.890 Hormone replacement therapy; Z79.899 Other long term (current) drug therapy; Z79.4 Long term (current) use of insulin
CPT/HCPCS: 74177; 80053; 83690; 85025; 96361; 96374-59; 96375; 96376; 99284-25; A9270; J2270; J2405; J7030; Q9967

== ENCOUNTER → 2023-06-23 | Outpatient (CLI) | payer MEDICARE, OTHER ==
[~2023-06-23] MED LIST changes: +ATOR40TA PO; +BASAGLAR K100 UNIT/3 SC; +HYDROCODONE-AC1 EA19 PO; +Vancocin HCl125 MG
== END | disposition home or self-care (01) ==
LOC: LAB SHORT 15:30 → LAB 15:30
DX: N39.0 Urinary tract infection, site not specified (principal)
CPT/HCPCS: 87077; 87086; 87186

== ENCOUNTER → 2023-06-24 | Outpatient (CLI) | payer MEDICARE, OTHER ==
[2023-06-24 18:31] LABS: Campylobacter Sp Not Detected (NOT DETECT)
[2023-06-24 18:32] LABS: Adenovirus F 40/41 Not Detected (NOT DETECT); Astrovirus Not Detected (NOT DETECT); Cryptosporidium Not Detected (NOT DETECT); Cyclospora Cayetanensis Not Detected (NOT DETECT); E. Coli O157 Not Detected (NOT DETECT); Entamoeba Histolytica Not Detected (NOT DETECT); Enteroaggregative E. coli-EAEC Not Detected (NOT DETECT); Enteropathogenic E. coli-EPEC Not Detected (NOT DETECT); Enterotoxigenic E. coli-ETEC Not Detected (NOT DETECT); Giardia Lamblia Not Detected (NOT DETECT); Norovirus GI/GII Detected (NOT DETECT); Plesiomonas Shigelloides Not Detected (NOT DETECT); Rotavirus A Not Detected (NOT DETECT); Salmonella Sp Not Detected (NOT DETECT); Sapovirus Not Detected (NOT DETECT); Shiga Toxin-prod E. coli-STEC Not Detected (NOT DETECT); Shigella/Enteroin E. coli-EIEC Not Detected (NOT DETECT); Vibrio Cholerae Not Detected (NOT DETECT); Vibrio Sp Not Detected (NOT DETECT); Yersinia Enterocolitica Not Detected (NOT DETECT)
== END ==
LOC: LAB 15:38 → LAB SHORT 15:38
PROVIDERS: Family Medicine
DX: R19.7 Diarrhea, unspecified (principal)
CPT/HCPCS: 87324; 87507

== ENCOUNTER 2023-07-05 12:12 | Emergency (ER) | payer MEDICARE, OTHER ==
[~2023-07-05] VITALS: Ht 160 cm; Wt 68.5 kg
[2023-07-05 12:43] LABS: BASOPHILS ABSOLUTE AUTO 0.05 K/mm3 (0.00-0.23); BASOPHILS PERCENT AUTO 1 % (0-2); EOSINOPHILS ABSOLUTE AUTO 0.14 K/mm3 (0.00-0.68); EOSINOPHILS PERCENT AUTO 3 % (0-6); Hematocrit 30.5 % (33.0-51.0); Hemoglobin 9.5 g/dL (11.5-16.0); IMMATURE GRAN ABSOLUTE AUTO 0.02 K/mm3 (0.00-0.10); IMMATURE GRAN PERCENT AUTO 0 % (0-1); LYMPHOCYTES ABSOLUTE AUTO 0.73 K/mm3 (0.84-5.20); LYMPHOCYTES PERCENT AUTO 13 % (21-46); MONOCYTES PERCENT AUTO 9 % (4-13); Mean Corpuscular HGB 27.7 pg (26.0-34.0); Mean Corpuscular HGB Conc 31.1 g/dL (31.5-36.5); Mean Corpuscular Volume 89 fL (80-100); Mean Platelet Volume 9.1 fL (9.1-12.4); NEUTROPHILS ABSOLUTE AUTO 4.23 K/mm3 (1.96-9.15); NEUTROPHILS PERCENT AUTO 75 % (41-73); Platelet Count 157 K/mm3 (150-400); RDW Coefficient Variation 17.4 % (11.7-14.2); RDW Standard Deviation 56.9 fL (35.1-46.3); Red Blood Cell Count 3.43 M/mm3 (3.80-5.20); White Blood Cell Count 5.67 K/mm3 (4.00-11.30)
[2023-07-05] MEDS ORDERED: INSULIN (13:10)
[2023-07-05 13:11] LABS: Albumin, Blood 2.5 g/dL (3.4-5.0); Albumin/Globulin Ratio 0.6 (0.8-1.8); Bilirubin, Total 0.7 mg/dL (0.1-1.0); Bun/Creatinine Ratio 14.4 (12.0-20.0); Calcium, Blood 8.5 mg/dL (8.5-10.1); Creatinine, Blood 1.04 mg/dL (0.40-1.00); Globulin, Blood 4.4 g/dL (2.2-4.0); Potassium, Blood 3.4 mmol/L (3.5-5.5); Total Protein, Blood 6.9 g/dL (6.4-8.2)
[2023-07-05] MEDS ORDERED: FARXIGA10 MG PO (13:11)
[2023-07-05 14:45] VITALS: BP 112/58
== END 2023-07-05 14:53 | disposition home or self-care (01) ==
LOC: ER 12:12
PROVIDERS: Emergency Medicine
DX: R07.9 Chest pain, unspecified (principal); Z88.8 Allergy status to other drugs, medicaments and biological substances; Z88.0 Allergy status to penicillin; Z88.1 Allergy status to other antibiotic agents; Z88.2 Allergy status to sulfonamides; Z88.5 Allergy status to narcotic agent; Z79.899 Other long term (current) drug therapy; Z79.4 Long term (current) use of insulin; E11.9 Type 2 diabetes mellitus without complications; G20.A1 Parkinson's disease without dyskinesia, without mention of fluctuations
CPT/HCPCS: 71045; 80053; 83690; 84484; 85025; 93005; 93010; 99284-25

== ENCOUNTER 2023-12-25 19:47 | Emergency (ER) | payer MEDICARE, OTHER ==
[~2023-12-25] VITALS: Ht 162.6 cm; Wt 77.1 kg
[~2023-12-25 19:47] MED LIST changes: +FARXIGA10 MG PO; +INSULIN
[2023-12-25 19:49] VITALS: BP 131/67
[2023-12-25] MEDS ORDERED: Amoxicillin875 MG PO (20:01)
== END 2023-12-25 19:59 | disposition home or self-care (01) ==
LOC: ER 19:47
DX: R60.0 Localized edema (principal); E11.9 Type 2 diabetes mellitus without complications; Z79.899 Other long term (current) drug therapy; Z79.4 Long term (current) use of insulin; Z88.2 Allergy status to sulfonamides; Z88.1 Allergy status to other antibiotic agents; Z88.5 Allergy status to narcotic agent; Z88.8 Allergy status to other drugs, medicaments and biological substances
CPT/HCPCS: 99282

== ENCOUNTER 2024-02-25 17:19 | Inpatient (IN) | payer OTHER, MEDICARE ==
[~2024-02-25] VITALS: Ht 165.1 cm; Wt 76.4 kg
[~2024-02-25 17:19] MED LIST changes: +Amoxicillin875 MG PO
[2024-02-25] MEDS ORDERED: Lactated Ringer's 1,000 ML IV ONE (17:30)
[2024-02-25] MEDS ORDERED: Diphth,Pertuss(Acell),Tet Vac 0.5 ML VIAL IM ONE (17:30)
[2024-02-25 17:54] LABS: BASOPHILS ABSOLUTE AUTO 0.04 K/mm3 (0.00-0.23); BASOPHILS PERCENT AUTO 0 % (0-2); EOSINOPHILS ABSOLUTE AUTO 0.25 K/mm3 (0.00-0.68); EOSINOPHILS PERCENT AUTO 3 % (0-6); Hematocrit 36.7 % (33.0-51.0); Hemoglobin 11.5 g/dL (11.5-16.0); IMMATURE GRAN ABSOLUTE AUTO 0.09 K/mm3 (0.00-0.10); IMMATURE GRAN PERCENT AUTO 1 % (0-1); LYMPHOCYTES ABSOLUTE AUTO 1.02 K/mm3 (0.84-5.20); LYMPHOCYTES PERCENT AUTO 11 % (21-46); MONOCYTES ABSOLUTE AUTO 0.66 K/mm3 (0.16-1.47); MONOCYTES PERCENT AUTO 7 % (4-13); Mean Corpuscular HGB 28.3 pg (26.0-34.0); Mean Corpuscular HGB Conc 31.3 g/dL (31.5-36.5); Mean Corpuscular Volume 90 fL (80-100); Mean Platelet Volume 9.1 fL (9.1-12.4); NEUTROPHILS PERCENT AUTO 79 % (41-73); Platelet Count 192 K/mm3 (150-400); RDW Coefficient Variation 17.1 % (11.7-14.2); RDW Standard Deviation 56.6 fL (35.1-46.3); Red Blood Cell Count 4.07 M/mm3 (3.80-5.20); White Blood Cell Count 9.76 K/mm3 (4.00-11.30)
[2024-02-25 18:09] LABS: International Normalized Ratio 0.96; Prothrombin Time Results 10.3 Sec (9.7-11.5)
[2024-02-25 18:17] LABS: Magnesium, Blood 1.9 mg/dL (1.6-2.4)
[2024-02-25 18:18] LABS: Albumin, Blood 2.5 g/dL (3.4-5.0); Albumin/Globulin Ratio 0.6 (0.8-1.8); Bilirubin, Total 0.7 mg/dL (0.1-1.0); Bun/Creatinine Ratio 21.1 (12.0-20.0); Calcium, Blood 9.2 mg/dL (8.5-10.1); Creatinine, Blood 1.23 mg/dL (0.40-1.00); Globulin, Blood 3.9 g/dL (2.2-4.0); Potassium, Blood 4.7 mmol/L (3.5-5.5); Total Protein, Blood 6.4 g/dL (6.4-8.2)
[2024-02-25] MEDS ORDERED: Acetaminophen 325 MG TABLET PO ONE (19:20)
[2024-02-25] MEDS ORDERED: OxyCODONE HCL 5 MG TAB PO ONE (19:20)
[2024-02-26 03:00] LABS: Source, Urine Clean Catch
[2024-02-26 03:02] LABS: Bilirubin, Urine Neg (Neg); Blood, Urine Neg (Neg); Glucose Qualitative, Urine 4+ (Neg); Ketones, Urine Neg (Neg); Leukocyte Esterase, Urine Neg (Neg); Nitrite, Urine Neg (Neg); Protein, Urine Neg (Neg); Specific Gravity, Urine 1.005 (1.003-1.022); Urobilinogen, Urine NORM (Normal)
[2024-02-26 03:04] LABS: Appearance, Urine Clear (Clear); Color, Urine Yellow (P-Yellow)
[2024-02-26] MEDS ORDERED: Bisacodyl 10 MG Supp PR PRN (03:10)
[2024-02-26] MEDS ORDERED: Acetaminophen 650 MG Supp PR PRN (03:10)
[2024-02-26] MEDS ORDERED: Acetaminophen 325 MG TABLET PO PRN (03:10)
[2024-02-26] MEDS ORDERED: Magnesium Hydroxide Conc 10 ML UDC PO PRN (03:10)
[2024-02-26] MEDS ORDERED: FLU VACC TS2024-25(6MOS UP)/PF 45 MCG/0.5 ML SYRINGE IM SCH (03:10)
[2024-02-26 05:49] VITALS: BP 121/52
[2024-02-26] MEDS ORDERED: Insulin Human Lispro 100 Units/ML 3ML Syringe SC SCH ×2 (06:00→16:30)
[2024-02-26] MEDS ORDERED: Levothyroxine Sodium 0.05 MG Tab PO SCH (06:00)
[2024-02-26 06:54] LABS: BASOPHILS ABSOLUTE AUTO 0.02 K/mm3 (0.00-0.23); BASOPHILS PERCENT AUTO 0 % (0-2); EOSINOPHILS ABSOLUTE AUTO 0.18 K/mm3 (0.00-0.68); EOSINOPHILS PERCENT AUTO 3 % (0-6); Hematocrit 32.6 % (33.0-51.0); Hemoglobin 10.3 g/dL (11.5-16.0); IMMATURE GRAN ABSOLUTE AUTO 0.06 K/mm3 (0.00-0.10); IMMATURE GRAN PERCENT AUTO 1 % (0-1); LYMPHOCYTES ABSOLUTE AUTO 0.89 K/mm3 (0.84-5.20); LYMPHOCYTES PERCENT AUTO 13 % (21-46); MONOCYTES ABSOLUTE AUTO 0.52 K/mm3 (0.16-1.47); MONOCYTES PERCENT AUTO 7 % (4-13); Mean Corpuscular HGB 28.4 pg (26.0-34.0); Mean Corpuscular HGB Conc 31.6 g/dL (31.5-36.5); Mean Corpuscular Volume 90 fL (80-100); NEUTROPHILS ABSOLUTE AUTO 5.38 K/mm3 (1.96-9.15); NEUTROPHILS PERCENT AUTO 76 % (41-73); Platelet Count 160 K/mm3 (150-400); RDW Coefficient Variation 17.3 % (11.7-14.2); RDW Standard Deviation 57.1 fL (35.1-46.3); Red Blood Cell Count 3.63 M/mm3 (3.80-5.20); White Blood Cell Count 7.05 K/mm3 (4.00-11.30)
--- NOTE | 2024-02-26 07:11 | NUR ---
Pt was admitted from the ER with a DX of subarachnoid hemorrhage following injury and multiple falls. Pt alert oriented x 4. She has bruises to rt side of face, rt shoulder, bilat knees, and buttocks. Shes very weak to BLE. c/o headache but no dizziness. vss at this time. Her is at the bedside and they are both able to answer questions.
[2024-02-26 07:12] LABS: Albumin, Blood 2.3 g/dL (3.4-5.0); Albumin/Globulin Ratio 0.7 (0.8-1.8); Bilirubin, Total 0.7 mg/dL (0.1-1.0); Bun/Creatinine Ratio 23.4 (12.0-20.0); Calcium, Blood 8.7 mg/dL (8.5-10.1); Creatinine, Blood 1.11 mg/dL (0.40-1.00); Globulin, Blood 3.3 g/dL (2.2-4.0); Potassium, Blood 4.1 mmol/L (3.5-5.5); Total Protein, Blood 5.6 g/dL (6.4-8.2)
[2024-02-26 07:22] VITALS: BP 117/49
[2024-02-26] MEDS ORDERED: Insulin Glargine-Yfgn 100 Unit/mL 3 ML SYR SC SCH ×2 (09:00→21:00)
[2024-02-26] MEDS ORDERED: Docusate Sodium 100 MG Cap PO SCH (09:00)
[2024-02-26] MEDS ORDERED: Finasteride 5 MG Tab PO SCH (09:00)
[2024-02-26] MEDS ORDERED: Gabapentin 300 MG Cap PO SCH (09:00)
[2024-02-26] MEDS ORDERED: Sennosides 8.6 MG Tab PO SCH (09:00)
[2024-02-26] MEDS ORDERED: buPROPion HCL 150 MG TAB.SR.12H PO SCH (09:00)
[2024-02-26 13:02] VITALS: BP 111/53
[2024-02-26 14:56] VITALS: BP 99/39
--- NOTE | 2024-02-26 18:30 | NUR ---
SHIFT SUMMARY PATIENT ALERT AND INTERACTIVE. PATIENT HAVING WORD SALAD AT TIMES. PATIENT UP AMBULATING TO BR WITH ASSIST. PATIENT HAVING BALANCE ISSUES. PATIENT STATES THAT SHE HAS HAD BALANCE ISSUES PRIOR TO FALLS. VARIOUS BRUISING NOTED. NEURO CHECKS UNCHANGED.
[2024-02-26 19:49] VITALS: BP 122/50
[2024-02-26] MEDS ORDERED: Naltrexone HCl 50 MG Tab PO SCH (21:00)
[2024-02-26] MEDS ORDERED: N-Acetylcysteine 600 MG CAP PO SCH (21:00)
[2024-02-27 02:58] VITALS: BP 123/60
--- NOTE | 2024-02-27 04:16 | NUR ---
SHIFT SUMMARY PATIENT IS ALERT AND ORIENTED X3 WITH CONFUSION OCCASIONALLY. PATIENT HAS HAD NO ACUTE EVENTS THIS SHIFT. VITAL SIGNS REVIEWED. PATIENT HAS SLEPT MOST OF SHIFT. CBG HAS BEEN TRENDING LOWER. PATIENT HAS NOT COMPLAINED OF PAIN, NAUSEA, SOB OR VOMITTING THIS SHIFT. BED IN LOCKED AND LOWERED POSITION. BED ALARM ON. CALL LIGHT WITHIN REACH.
[2024-02-27 05:37] LABS: BASOPHILS ABSOLUTE AUTO 0.03 K/mm3 (0.00-0.23); BASOPHILS PERCENT AUTO 1 % (0-2); EOSINOPHILS ABSOLUTE AUTO 0.15 K/mm3 (0.00-0.68); EOSINOPHILS PERCENT AUTO 2 % (0-6); Hematocrit 30.9 % (33.0-51.0); Hemoglobin 9.7 g/dL (11.5-16.0); IMMATURE GRAN ABSOLUTE AUTO 0.07 K/mm3 (0.00-0.10); IMMATURE GRAN PERCENT AUTO 1 % (0-1); LYMPHOCYTES ABSOLUTE AUTO 0.82 K/mm3 (0.84-5.20); LYMPHOCYTES PERCENT AUTO 13 % (21-46); MONOCYTES PERCENT AUTO 10 % (4-13); Mean Corpuscular HGB 28.3 pg (26.0-34.0); Mean Corpuscular HGB Conc 31.4 g/dL (31.5-36.5); Mean Corpuscular Volume 90 fL (80-100); Mean Platelet Volume 9.3 fL (9.1-12.4); NEUTROPHILS ABSOLUTE AUTO 4.61 K/mm3 (1.96-9.15); NEUTROPHILS PERCENT AUTO 73 % (41-73); Platelet Count 149 K/mm3 (150-400); RDW Coefficient Variation 17.6 % (11.7-14.2); Red Blood Cell Count 3.43 M/mm3 (3.80-5.20); White Blood Cell Count 6.28 K/mm3 (4.00-11.30)
[2024-02-27 06:20] LABS: Albumin, Blood 2.2 g/dL (3.4-5.0); Albumin/Globulin Ratio 0.7 (0.8-1.8); Bilirubin, Total 0.7 mg/dL (0.1-1.0); Bun/Creatinine Ratio 22.5 (12.0-20.0); Calcium, Blood 8.4 mg/dL (8.5-10.1); Creatinine, Blood 1.11 mg/dL (0.40-1.00); Globulin, Blood 3.3 g/dL (2.2-4.0); Potassium, Blood 4.5 mmol/L (3.5-5.5); Total Protein, Blood 5.5 g/dL (6.4-8.2)
[2024-02-27 07:25] VITALS: BP 117/54
[2024-02-27] MEDS ORDERED: Insulin Human Lispro 100 Units/ML 3ML Syringe SC SCH (07:30)
[2024-02-27] MEDS ORDERED: DOCU100 PO (15:23)
[2024-02-27] MEDS ORDERED: HUMALOG100 UNIT/1 (15:25)
[2024-02-27] MEDS ORDERED: INSULIN LI100 UNIT/6 SC (15:29)
[2024-02-27 15:40] VITALS: BP 122/59
--- NOTE | 2024-02-27 16:04 | NUR ---
DISCHARGE PT A&OX4, AND COOPERATIVE. PT WAS TAKEN DOWN TO ED EXIT BY NATALIA RDZ BY WHEELCHAIR. IV WAS DC'D WITHOUT PROBLEMS. TOOK BELONGINGS AND DISCHARGE PAPERWORK. EDUCATION PROVIDED TO PT ABOUT BEING PATIENT AND NOT FALLING AT HOME.
== END 2024-02-27 16:20 | disposition home health service (06) | DRG 82 ==
LOC: ER 17:19 → MEDS 02-26 03:05
PROVIDERS: Family Medicine; Student in an Organized Health Care Education/Training Program; ADMIT Surgery
DX: S06.6X9A Traumatic subarachnoid hemorrhage with loss of consciousness of unspecified duration, initial encounter (principal); G92.8 Other toxic encephalopathy; E87.1 Hypo-osmolality and hyponatremia; E87.20 Acidosis, unspecified; R18.8 Other ascites; E11.9 Type 2 diabetes mellitus without complications; M79.7 Fibromyalgia; G20.A1 Parkinson's disease without dyskinesia, without mention of fluctuations; F02.80 Dementia in other diseases classified elsewhere, unspecified severity, without behavioral disturbance, psychotic disturbance, mood disturbance, and anxiety; F31.9 Bipolar disorder, unspecified; R29.6 Repeated falls; S01.81XA Laceration without foreign body of other part of head, initial encounter; K74.60 Unspecified cirrhosis of liver; Z90.710 Acquired absence of both cervix and uterus; Z98.890 Other specified postprocedural states; Z88.1 Allergy status to other antibiotic agents; Z88.2 Allergy status to sulfonamides; Z88.6 Allergy status to analgesic agent; Z88.8 Allergy status to other drugs, medicaments and biological substances; Z79.4 Long term (current) use of insulin; Z79.890 Hormone replacement therapy; Z79.899 Other long term (current) drug therapy; W01.198A Fall on same level from slipping, tripping and stumbling with subsequent striking against other object, initial encounter; Y92.093 Driveway of other non-institutional residence as the place of occurrence of the external cause
CPT/HCPCS: 36415; 70450; 70486; 71260; 72125; 73590; 73610; 73630; 74177; 80048; 80053; 81003; 82140; 82947; 83605; 83690; 83735; 83880; 84484; 85025; 85027; 85610; 85730; 86850; 86900; 86901; 93005; 93010; 97116; 97162; 97167; 97530; 99285-25; A9270; J1815; J7120; Q9967

== ENCOUNTER 2024-03-24 09:32 | Emergency (ER) | payer MEDICARE, OTHER ==
[~2024-03-24] VITALS: Ht 162.6 cm; Wt 81.7 kg
[~2024-03-24 09:32] MED LIST changes: +DOCU100 PO; +HUMALOG100 UNIT/1; +INSULIN LI100 UNIT/6 SC
[2024-03-24 10:05] LABS: BASOPHILS ABSOLUTE AUTO 0.02 K/mm3 (0.00-0.23); BASOPHILS PERCENT AUTO 0 % (0-2); EOSINOPHILS ABSOLUTE AUTO 0.16 K/mm3 (0.00-0.68); EOSINOPHILS PERCENT AUTO 1 % (0-6); Hematocrit 36.2 % (33.0-51.0); Hemoglobin 11.8 g/dL (11.5-16.0); IMMATURE GRAN ABSOLUTE AUTO 0.12 K/mm3 (0.00-0.10); IMMATURE GRAN PERCENT AUTO 1 % (0-1); LYMPHOCYTES ABSOLUTE AUTO 1.17 K/mm3 (0.84-5.20); LYMPHOCYTES PERCENT AUTO 9 % (21-46); MONOCYTES ABSOLUTE AUTO 0.82 K/mm3 (0.16-1.47); MONOCYTES PERCENT AUTO 6 % (4-13); Mean Corpuscular HGB 27.3 pg (26.0-34.0); Mean Corpuscular HGB Conc 32.6 g/dL (31.5-36.5); Mean Corpuscular Volume 84 fL (80-100); Mean Platelet Volume 10.4 fL (9.1-12.4); NEUTROPHILS ABSOLUTE AUTO 11.43 K/mm3 (1.96-9.15); NEUTROPHILS PERCENT AUTO 83 % (41-73); Platelet Count 236 K/mm3 (150-400); RDW Coefficient Variation 17.6 % (11.7-14.2); RDW Standard Deviation 54.1 fL (35.1-46.3); Red Blood Cell Count 4.33 M/mm3 (3.80-5.20); White Blood Cell Count 13.72 K/mm3 (4.00-11.30)
[2024-03-24 10:20] LABS: Albumin, Blood 2.8 g/dL (3.4-5.0); Albumin/Globulin Ratio 0.7 (0.8-1.8); Bilirubin, Total 0.7 mg/dL (0.1-1.0); Bun/Creatinine Ratio 53.5 (12.0-20.0); Calcium, Blood 9.6 mg/dL (8.5-10.1); Creatinine, Blood 1.29 mg/dL (0.40-1.00); Globulin, Blood 3.8 g/dL (2.2-4.0); Potassium, Blood 5.3 mmol/L (3.5-5.5); Total Protein, Blood 6.6 g/dL (6.4-8.2)
[2024-03-24] MEDS ORDERED: Lactated Ringer's 500 ML IV SCH ×2 (10:30→10:45)
[2024-03-24] MEDS ORDERED: Lactated Ringer's 500 ML IV ONE (10:50)
[2024-03-24 11:39] LABS: Influenza A, PCR NEGATIVE (NEGATIVE); Influenza B, PCR NEGATIVE (NEGATIVE); Resp Syncytial Virus, PCR NEGATIVE (NEGATIVE); SARS-Cov-2 (COVID-19) PCR, MMC NEGATIVE (NEGATIVE)
[2024-03-24 12:19] LABS: Source, Urine Clean Catch
[2024-03-24 12:24] LABS: Appearance, Urine Clear (Clear); Bilirubin, Urine Neg (Neg); Blood, Urine Neg (Neg); Color, Urine Yellow (P-Yellow); Glucose Qualitative, Urine 4+ (Neg); Ketones, Urine Neg (Neg); Leukocyte Esterase, Urine Neg (Neg); Nitrite, Urine Neg (Neg); Protein, Urine Neg (Neg); Specific Gravity, Urine 1.015 (1.003-1.022); Urobilinogen, Urine NORM (Normal)
[2024-03-24] MEDS ORDERED: Insulin Regular 100 Unit/ML 1ML Dose IV ONE (12:45)
[2024-03-24 15:15] VITALS: BP 132/63
== END 2024-03-24 15:30 | disposition home or self-care (01) ==
LOC: ER 09:32
PROVIDERS: Student in an Organized Health Care Education/Training Program
DX: E11.65 Type 2 diabetes mellitus with hyperglycemia (principal); R53.1 Weakness; Z79.4 Long term (current) use of insulin; Z79.899 Other long term (current) drug therapy; Z88.2 Allergy status to sulfonamides; Z88.1 Allergy status to other antibiotic agents; Z88.5 Allergy status to narcotic agent; Z88.8 Allergy status to other drugs, medicaments and biological substances
CPT/HCPCS: 0241U; 71045; 80053; 81003; 82947; 84484; 85025; 93005; 93010; 99285-25; J1815; J7120

== ENCOUNTER → 2024-04-06 | Outpatient (CLI) | payer MEDICARE, OTHER | LOC: LAB SHORT 15:42 → LAB 15:42 | DX: N39.0 Urinary tract infection, site not specified (principal) | CPT/HCPCS: 87086 ==

== ENCOUNTER 2024-05-12 10:28 | Emergency (ER) | payer MEDICARE, OTHER ==
[~2024-05-12] VITALS: Ht 160 cm; Wt 74.8 kg
[2024-05-12 10:54] VITALS: BP 110/67
== END 2024-05-12 12:30 | disposition home or self-care (01) ==
LOC: ER 10:28
DX: S00.83XA Contusion of other part of head, initial encounter (principal); W18.30XA Fall on same level, unspecified, initial encounter; E11.9 Type 2 diabetes mellitus without complications; Z79.899 Other long term (current) drug therapy; Z79.4 Long term (current) use of insulin; Z88.2 Allergy status to sulfonamides; Z88.1 Allergy status to other antibiotic agents; Z88.5 Allergy status to narcotic agent; Z88.8 Allergy status to other drugs, medicaments and biological substances
CPT/HCPCS: 70450; 99284-25

== ENCOUNTER → 2024-06-14 | Outpatient (CLI) | payer MEDICARE, OTHER ==
[2024-06-18 06:24] LABS: CALPROTECTIN,FECAL >3000 ug/g (<=49)
== END ==
LOC: LAB SHORT 15:52 → LAB 15:52 → LAB FUT 05-31 16:15
PROVIDERS: Physician Assistant
DX: R10.32 Left lower quadrant pain (principal); K74.60 Unspecified cirrhosis of liver
CPT/HCPCS: 36415; 80053; 80069; 83735; 83993; 85018

== ENCOUNTER → 2024-07-13 | Outpatient (CLI) | payer MEDICARE, OTHER ==
[2024-07-13 16:20] LABS: BASOPHILS ABSOLUTE AUTO 0.06 K/mm3 (0.00-0.23); BASOPHILS PERCENT AUTO 2 % (0-2); EOSINOPHILS ABSOLUTE AUTO 0.25 K/mm3 (0.00-0.68); EOSINOPHILS PERCENT AUTO 6 % (0-6); Hematocrit 27.7 % (33.0-51.0); Hemoglobin 8.2 g/dL (11.5-16.0); IMMATURE GRAN ABSOLUTE AUTO 0.02 K/mm3 (0.00-0.10); IMMATURE GRAN PERCENT AUTO 1 % (0-1); LYMPHOCYTES ABSOLUTE AUTO 0.49 K/mm3 (0.84-5.20); LYMPHOCYTES PERCENT AUTO 12 % (21-46); MONOCYTES ABSOLUTE AUTO 0.37 K/mm3 (0.16-1.47); MONOCYTES PERCENT AUTO 9 % (4-13); Mean Corpuscular HGB 25.9 pg (26.0-34.0); Mean Corpuscular HGB Conc 29.6 g/dL (31.5-36.5); Mean Corpuscular Volume 88 fL (80-100); NEUTROPHILS ABSOLUTE AUTO 2.91 K/mm3 (1.96-9.15); NEUTROPHILS PERCENT AUTO 71 % (41-73); Platelet Count 198 K/mm3 (150-400); RDW Coefficient Variation 18.6 % (11.7-14.2); RDW Standard Deviation 59.7 fL (35.1-46.3); Red Blood Cell Count 3.16 M/mm3 (3.80-5.20)
[2024-07-13 21:52] LABS: Percent Saturation 8.8 % (15.0-50.0)
== END | disposition home or self-care (01) ==
LOC: LAB 15:21 → LAB SHORT 15:21
PROVIDERS: Internal Medicine Hematology & Oncology
DX: E61.1 Iron deficiency (principal)
CPT/HCPCS: 82728; 83540; 83550; 85025

== ENCOUNTER 2024-12-03 11:34 | Emergency (ER) | payer MEDICARE, OTHER ==
[~2024-12-03] VITALS: Ht 160 cm; Wt 77.1 kg
[2024-12-03 11:49] VITALS: BP 130/81
[2024-12-03] MEDS ORDERED: Permethrin60 GM TOP (16:45)
[2024-12-03] MEDS ORDERED: HYDPAM25 PO (16:45)
== END 2024-12-03 17:01 | disposition home or self-care (01) ==
LOC: ER 11:34
DX: B86 Scabies (principal); R21 Rash and other nonspecific skin eruption; E11.9 Type 2 diabetes mellitus without complications; Z79.899 Other long term (current) drug therapy; Z79.4 Long term (current) use of insulin; Z88.8 Allergy status to other drugs, medicaments and biological substances; Z88.1 Allergy status to other antibiotic agents; Z88.5 Allergy status to narcotic agent
CPT/HCPCS: 99282; A9270

== ENCOUNTER 2024-12-20 17:47 | Inpatient (IN) | payer MEDICARE, OTHER ==
[~2024-12-20] VITALS: Ht 160 cm; Wt 71.2 kg
[~2024-12-20 17:47] MED LIST changes: +Cyproheptadine H4 MG PO; +HYDPAM25 PO; +Permethrin60 GM TOP
[2024-12-20 18:46] LABS: BASOPHILS ABSOLUTE AUTO 0.10 K/mm3 (0.00-0.23); BASOPHILS PERCENT AUTO 1 % (0-2); EOSINOPHILS ABSOLUTE AUTO 0.30 K/mm3 (0.00-0.68); EOSINOPHILS PERCENT AUTO 4 % (0-6); Hematocrit 30.9 % (33.0-51.0); Hemoglobin 9.9 g/dL (11.5-16.0); IMMATURE GRAN ABSOLUTE AUTO 0.03 K/mm3 (0.00-0.10); IMMATURE GRAN PERCENT AUTO 0 % (0-1); LYMPHOCYTES ABSOLUTE AUTO 1.22 K/mm3 (0.84-5.20); LYMPHOCYTES PERCENT AUTO 15 % (21-46); MONOCYTES ABSOLUTE AUTO 0.71 K/mm3 (0.16-1.47); MONOCYTES PERCENT AUTO 9 % (4-13); Mean Corpuscular HGB Conc 32.0 g/dL (31.5-36.5); Mean Corpuscular Volume 95 fL (80-100); NEUTROPHILS ABSOLUTE AUTO 5.77 K/mm3 (1.96-9.15); NEUTROPHILS PERCENT AUTO 71 % (41-73); NRBC ABSOLUTE 0.00 K/mm3 (0.00-0.02); NRBC Auto 0.0 /100 WBC (0.0-0.2); Platelet Count 220 K/mm3 (150-400); RDW Coefficient Variation 14.5 % (11.7-14.2); RDW Standard Deviation 50.3 fL (35.1-46.3)
[2024-12-20 19:00] LABS: Alanine Aminotransfer (ALT/SGP 32.0 U/L (12-78); Albumin, Blood 3.6 g/dL (3.4-5.0); Albumin/Globulin Ratio 0.8 (0.8-1.8); Anion Gap 12.0 mmol/L (3-11); Aspartate Aminotrans (AST/SGOT 53.0 U/L (12-37); Bilirubin, Total 0.5 mg/dL (0.1-1.0); Blood Urea Nitrogen 79.0 mg/dL (8-24); CO2, Blood 24.0 mmol/L (21-32); Calcium, Blood 9.7 mg/dL (8.5-10.1); Chloride, Blood 109.0 mmol/L (98-108); Creatinine, Blood 1.41 mg/dL (0.40-1.00); Globulin, Blood 4.4 g/dL (2.2-4.0); Glucose, Blood 209.0 mg/dL (70-99); Magnesium, Blood 2.3 mg/dL (1.6-2.4); Potassium, Blood 4.5 mmol/L (3.5-5.5); Sodium, Blood 140.0 mmol/L (136-145); Total Protein, Blood 8.0 g/dL (6.4-8.2)
[2024-12-20] MEDS ORDERED: Ondansetron HCl 2 MG / ML 2ML Vial IV ONE (19:05)
[2024-12-20] MEDS ORDERED: Morphine Sulfate 4 MG/1 ML Injection IV ONE (19:05)
[2024-12-20 19:10] LABS: Source, Urine Clean Catch
[2024-12-20 19:16] LABS: Bilirubin, Urine Neg (Neg); Color, Urine Yellow (P-Yellow); Glucose Qualitative, Urine 3+ (Neg); Ketones, Urine 2+ (Neg); Leukocyte Esterase, Urine 1+ (Neg); Protein, Urine 1+ (Neg); Specific Gravity, Urine 1.020 (1.003-1.022); Urobilinogen, Urine NORM (Normal)
[2024-12-20 19:23] LABS: Red Blood Cells, Urine 0-2 /hpf (0-2)
[2024-12-20] MEDS ORDERED: Ondansetron HCl 2 MG / ML 2ML Vial IV PRN (22:50)
[2024-12-20] MEDS ORDERED: NS 1,000 ML IV SCH (22:50)
[2024-12-20] MEDS ORDERED: FentaNYL Citrate 50 MCG/ML 2 ML Injection IV PRN (22:55)
[2024-12-20 23:25] LABS: Prothrombin Time Results 13.0 Sec (9.7-11.5)
[2024-12-20 23:29] LABS: Hematocrit 28.0 % (33.0-51.0); Hemoglobin 9.2 g/dL (11.5-16.0)
[2024-12-20 23:52] LABS: U Amphetamine Screen Not Detected; U Barbituate Screen Not Detected; U Benzodiazapine Screen Not Detected; U Buprenorphine Screen Not Detected; U Cannabinoids Screen Not Detected; U Cocaine Screen Not Detected; U Methadone Screen Not Detected; U Methamphetamine Screen Not Detected; U Opiates Screen Not Detected; U Oxycodone Screen Not Detected; U Phencyclidine Screen Not Detected
[2024-12-20] MEDS ORDERED: Lactulose 200 GM/300 ML Enema 300ML BTL PR ONE (23:55)
[2024-12-21] VITALS (13 sets, daily range): BP systolic 120–159; BP diastolic 50–104
[2024-12-21 00:16] LABS: Influenza A, PCR NEGATIVE (NEGATIVE); Influenza B, PCR NEGATIVE (NEGATIVE); Resp Syncytial Virus, PCR NEGATIVE (NEGATIVE); SARS-Cov-2 (COVID-19) PCR, MMC NEGATIVE (NEGATIVE)
[2024-12-21] MEDS ORDERED: LEVOCETIRIZINE D5 MG PO (00:27)
[2024-12-21] MEDS ORDERED: FURO20 PO (00:33)
[2024-12-21] MEDS ORDERED: HYDHCL25 PO (00:35)
[2024-12-21] MEDS ORDERED: INSULIN AS100 UNIT/8 SC (00:43)
[2024-12-21] MEDS ORDERED: SPIR50 PO (00:44)
[2024-12-21] MEDS ORDERED: KETO15TC TOP (00:44)
[2024-12-21] MEDS ORDERED: FentaNYL Citrate 50 MCG/ML 2 ML Injection IV ONE ×2 (01:20→17:40)
[2024-12-21] MEDS ORDERED: CefTRIAXone Sodium 1,000 MG in NS 100 ML IV SCH (03:11)
[2024-12-21] MEDS ORDERED: FentaNYL Citrate 50 MCG/ML 2 ML Injection IV PRN ×3 (03:15→17:35)
[2024-12-21] MEDS ORDERED: HYDROmorphone HCl/Pf 1MG SYR IV ONE ×4 (04:00→07:15)
[2024-12-21] MEDS ORDERED: HYDROmorphone HCl/Pf 1MG SYR ONE (05:30)
[2024-12-21] MEDS ORDERED: Lactulose 200 GM/300 ML Enema 300ML BTL PR SCH (06:00)
[2024-12-21] MEDS ORDERED: NS 1,000 ML IV ONE (07:13)
[2024-12-21] MEDS ORDERED: Insulin Human Lispro 100 Units/ML 3ML Syringe SC SCH ×2 (07:30→18:00)
[2024-12-21 07:33] LABS: BASOPHILS ABSOLUTE AUTO 0.07 K/mm3 (0.00-0.23); BASOPHILS PERCENT AUTO 1 % (0-2); EOSINOPHILS ABSOLUTE AUTO 0.52 K/mm3 (0.00-0.68); EOSINOPHILS PERCENT AUTO 7 % (0-6); Hematocrit 29.4 % (33.0-51.0); Hemoglobin 9.3 g/dL (11.5-16.0); IMMATURE GRAN ABSOLUTE AUTO 0.05 K/mm3 (0.00-0.10); IMMATURE GRAN PERCENT AUTO 1 % (0-1); LYMPHOCYTES ABSOLUTE AUTO 1.25 K/mm3 (0.84-5.20); LYMPHOCYTES PERCENT AUTO 18 % (21-46); MONOCYTES ABSOLUTE AUTO 0.64 K/mm3 (0.16-1.47); MONOCYTES PERCENT AUTO 9 % (4-13); Mean Corpuscular HGB Conc 31.6 g/dL (31.5-36.5); Mean Corpuscular Volume 95 fL (80-100); NEUTROPHILS ABSOLUTE AUTO 4.57 K/mm3 (1.96-9.15); NEUTROPHILS PERCENT AUTO 64 % (41-73); NRBC ABSOLUTE 0.00 K/mm3 (0.00-0.02); NRBC Auto 0.0 /100 WBC (0.0-0.2); Platelet Count 179 K/mm3 (150-400); RDW Coefficient Variation 14.6 % (11.7-14.2); RDW Standard Deviation 50.0 fL (35.1-46.3)
[2024-12-21 08:00] LABS: Alanine Aminotransfer (ALT/SGP 30.0 U/L (12-78); Albumin, Blood 3.2 g/dL (3.4-5.0); Albumin/Globulin Ratio 0.8 (0.8-1.8); Anion Gap 9.0 mmol/L (3-11); Aspartate Aminotrans (AST/SGOT 42.0 U/L (12-37); Bilirubin, Total 0.3 mg/dL (0.1-1.0); Blood Urea Nitrogen 72.0 mg/dL (8-24); CO2, Blood 25.0 mmol/L (21-32); Calcium, Blood 9.2 mg/dL (8.5-10.1); Chloride, Blood 115.0 mmol/L (98-108); Creatinine, Blood 1.31 mg/dL (0.40-1.00); Globulin, Blood 4.1 g/dL (2.2-4.0); Glucose, Blood 206.0 mg/dL (70-99); Potassium, Blood 4.0 mmol/L (3.5-5.5); Sodium, Blood 145.0 mmol/L (136-145); Thyroid Stimulating Hormone 3.89 uIU/mL (0.360-4.800); Total Protein, Blood 7.3 g/dL (6.4-8.2)
[2024-12-21] MEDS ORDERED: Diazepam 5 MG / ML 2ML SYR IV ONE ×2 (08:50→10:10)
[2024-12-21] MEDS ORDERED: Pantoprazole Sodium 40 MG Injection IV STA (12:16)
[2024-12-21] MEDS ORDERED: Octreotide Acetate 500 MCG in NS 250 ML IV SCH (12:25)
[2024-12-21 14:01] LABS: Hematocrit 29.5 % (33.0-51.0); Hemoglobin 9.4 g/dL (11.5-16.0)
--- NOTE | 2024-12-21 16:19 | NUR ---
Pt. is in bed and displays evidence of being miserable. After introdcutions with spouse who is at bedside, I prayed for the Pt. and the Pt. displayed evidence of becoming more preaceful. Afterward facilitated life review and built rapport with the Spouse. The family identifies as Pentecostal, so some education is given on the role of a Process Design Engineer as cement tester assistant. Spouse verbalized understanding and agreement as well as gratitude for the spiritual care visit and well as welcoming this cement tester assistant to return.
--- NOTE | 2024-12-21 16:49 | NUR ---
ASSUMPTION OF CARE PT ARRIVED TO ROOM AT 1359 VIA OTONIEL W/ ED RN. NEURO: PT CRYING OUT IN PAIN, UNABLE TO FOLLOWS COMMANDS OR LOCALIZE PAIN. MOVING ALL EXTREMETIES SPONTAEOUSLY. PT MEDICATED PER JUL. RESP: SATURATING >95% ON RA, LUNG SOUNDS DIM. CARDIAC: NSR ON MONITOR, MAPS>65, CAP REFILL <3 SECS, AMD NO EDEMA NOTED. GI: ABD DISTENDED AND TENDER TO PALPATION. : INCONTINENT. BRIEF APPLIED. SKIN HAS SCATTERED SCABS ON BLE, SKIN TEAR ON RIGHT BUTTOCK, AND SKIN TEAR/SCABS ON ABD. PHOTOS IN CHART. ACCESS: RFA PIV, RAC PIV GTTS: OCTEOTRIDE @25. NS @75. PANTOPRAZOLE @10
[2024-12-21 17:08] LABS: Hematocrit 29.1 % (33.0-51.0); Hemoglobin 9.2 g/dL (11.5-16.0)
--- NOTE | 2024-12-21 17:52 | NUR ---
PM NOTE PT ASSESSMENT REMAINS UNCHANGED FROM AFTERNOON NOTE. PT CONTINUES TO CRY OUT IN PAIN AND IS UNABLE TO LOCALIZE PAIN. PT SEEMS TO BE MORE PAINFUL W/ URINATION AND BOWEL MOVEMENTS AND MNOTIONING TO GROIN IN PAIN WHEN STAFF ATTEMPTS TO PERFORM PERICARE. SAEED CONTACTED FOR INCREASED PAIN MEDICATION, SEE ORDERS. RECTAL BAG IN PLACE TO PREVENT FURTHER SKIN BREAKDOWN FROM INCONTINENT BOWEL MOVEMENTS. THREE RINGS WERE REMOVED FROM PT'S FINGERS AND P[LACED IN CUP FOR PT'S SPOUSE TO TAKE HOME FOR SAFEKEEPING. ACCESS: RFA PIV, RAC PIV GTTS: OCTEOTRIDE @ 25ML/HR. PANTOPRAZOLE @ 10ML/HR. NS @ 75ML/HR.
[2024-12-21] MEDS ORDERED: HYDROmorphone HCl/Pf 1MG SYR IV PRN (20:05)
--- NOTE | 2024-12-21 23:54 | NUR ---
PT UPDATE: REPORT GIVEN [facility] AMBULANCE TEAM. ASSISTED W/ PT TRANSFER TO EMS [facility]. PTS BELONGINGS TAKEN BY EARLIER TODAY. PT TOLERATED TRANSFER WELL. PT TO BE TRANSFERRED TO [facility] [place] IN [place], [place]. PT DEPARTED ICU AT 2335, ACCOMPANIED BY EMS PERSONNEL. MORALES CAN, CALLED AND GAVE REPORT TO ALLEY CAN AT [facility] [place] WHO WILL ASSUME CARE OF PT ONCE PT ARRIVES.
== END 2024-12-21 23:35 | disposition short-term general hospital (02) | DRG 378 ==
LOC: ER 17:47 → ERHOLD 17:48 → ICUE 12-21 12:38 → ERHOLD 12-21 12:38 → ICUE 12-21 13:27
PROVIDERS: Student in an Organized Health Care Education/Training Program; Surgery; ADMIT Internal Medicine
DX: K92.1 Melena (principal); K76.6 Portal hypertension; N17.9 Acute kidney failure, unspecified; K76.82 Hepatic encephalopathy; K74.69 Other cirrhosis of liver; N18.30 Chronic kidney disease, stage 3 unspecified; F25.0 Schizoaffective disorder, bipolar type; J30.9 Allergic rhinitis, unspecified; E11.22 Type 2 diabetes mellitus with diabetic chronic kidney disease; I12.9 Hypertensive chronic kidney disease with stage 1 through stage 4 chronic kidney disease, or unspecified chronic kidney disease; E03.9 Hypothyroidism, unspecified; D63.1 Anemia in chronic kidney disease; K75.81 Nonalcoholic steatohepatitis (NASH); G20.A1 Parkinson's disease without dyskinesia, without mention of fluctuations; M79.7 Fibromyalgia; K52.9 Noninfective gastroenteritis and colitis, unspecified; K31.89 Other diseases of stomach and duodenum; Z88.8 Allergy status to other drugs, medicaments and biological substances; Z88.2 Allergy status to sulfonamides; Z88.5 Allergy status to narcotic agent; Z79.890 Hormone replacement therapy; Z79.4 Long term (current) use of insulin; Z79.84 Long term (current) use of oral hypoglycemic drugs
CPT/HCPCS: 36415; 51701; 70450; 74177; 80053; 81001; 82140; 82272; 82947; 83690; 83735; 83880; 84145; 84439; 84443; 85014; 85018; 85025; 85610; 86850; 86900; 86901; 87086; 87637; 93005; 93010; 96374-59; 96375; 96376; 99285-25; A9270; G0378; J0696; J1171; J2270; J2354; J2405; J2470; J3010; J3360; J7030; J7050; Q9967

== ENCOUNTER → 2025-01-07 | Outpatient (CLI) | payer MEDICARE, OTHER ==
[~2025-01-07] MED LIST changes: +INSULIN AS100 UNIT/8 SC; +KETO15TC TOP; +LEVOCETIRIZINE D5 MG PO; +SPIR50 PO
== END ==
LOC: LAB SHORT 18:10 → LAB 18:10
DX: N39.0 Urinary tract infection, site not specified (principal)
CPT/HCPCS: 87086

== ENCOUNTER → 2025-03-30 | Outpatient (CLI) | payer MEDICARE, OTHER ==
[2025-03-30 17:31] LABS: BASOPHILS ABSOLUTE AUTO 0.10 K/mm3 (0.00-0.23); BASOPHILS PERCENT AUTO 2 % (0-2); EOSINOPHILS ABSOLUTE AUTO 0.85 K/mm3 (0.00-0.68); EOSINOPHILS PERCENT AUTO 13 % (0-6); Hematocrit 34.5 % (33.0-51.0); Hemoglobin 10.7 g/dL (11.5-16.0); IMMATURE GRAN ABSOLUTE AUTO 0.01 K/mm3 (0.00-0.10); IMMATURE GRAN PERCENT AUTO 0 % (0-1); LYMPHOCYTES ABSOLUTE AUTO 0.68 K/mm3 (0.84-5.20); LYMPHOCYTES PERCENT AUTO 11 % (21-46); MONOCYTES ABSOLUTE AUTO 0.48 K/mm3 (0.16-1.47); MONOCYTES PERCENT AUTO 7 % (4-13); Mean Corpuscular HGB Conc 31.0 g/dL (31.5-36.5); Mean Corpuscular Volume 86 fL (80-100); NEUTROPHILS ABSOLUTE AUTO 4.33 K/mm3 (1.96-9.15); NEUTROPHILS PERCENT AUTO 67 % (41-73); NRBC ABSOLUTE 0.00 K/mm3 (0.00-0.02); NRBC Auto 0.0 /100 WBC (0.0-0.2); Platelet Count 179 K/mm3 (150-400); RDW Coefficient Variation 16.4 % (11.7-14.2); RDW Standard Deviation 51.6 fL (35.1-46.3)
[2025-03-30 23:14] LABS: Ferritin, Serum 220.0 ng/mL (8-252); Total Iron Binding Capacity 334.0 ug/dL (250-450)
== END | disposition home or self-care (01) ==
LOC: LAB 15:40 → LAB SHORT 15:40
PROVIDERS: Internal Medicine Hematology & Oncology
DX: E61.1 Iron deficiency (principal)
CPT/HCPCS: 82728; 83540; 83550; 85025